=== PATIENT | female | born 1930 | race Caucasian/White ===

== ENCOUNTER 2016-07-15 15:23 | Inpatient (IN) | payer OTHER ==
--- NOTE | 2016-07-15 15:57 | PDOC ---
[id number] Timing/Duration: reports: week Associated Symptoms: reports: chest pain/soreness, cough, shortness of breath. denies: fever/chills, lightheadedness <Abbey Tinsley - Last Filed: 07/15/16 17:58> <Abril Charles - Last Filed: 07/17/16 11:08> - General Chief Complaint: Shortness of Breath Stated Complaint: SOB/LEG PAIN Time Seen by Provider: 07/15/16 15:42 Past History - Past Medical History Anemia: No Asthma: Yes Cancer: No Cardiac Disorders: Yes (AK X3, CHF) CVA: Yes COPD: Yes CHF: Yes Dementia: No Diabetes: Yes GI Disorders: Yes (GERD) Disorders: Yes (abnormal Renal function) HTN: Yes Hypercholesterolemia: Yes Liver Disease: No Suicide Attempt (Hx): No Seizures: No Thyroid Disease: No - Surgical History Abdominal Surgery: Yes (COLOSTOMY REVERSED, UMBILICAL HERNIA REPAIR) Appendectomy: Yes Cardiac Surgery: No Cholecystectomy: No Lung Surgery: No Neurologic Surgery: No Orthopedic Surgery: No - Immunization History Immunization Up to Date: Yes - Psycho/Social/Smoking Cessation Hx Anxiety: No Suicidal Ideation: No Smoking Status: No Smoking History: Former smoker Have you smoked in the past 12 months: No Number of Cigarettes Smoked Daily: 0 If you are a former smoker, when did you quit?: 2009 'Breaking Loose' booklet given: 10/13/14 Hx Alcohol Use: No Drug/Substance Use Hx: No Substance Use Type: None Hx Substance Use Treatment: No <Abbey Tinsley - Last Filed: 07/15/16 17:58> <Abril Charles - Last Filed: 07/17/16 11:08> - Past Medical History Allergies/Adverse Reactions: Allergies Allergy/AdvReac Type Severity Reaction Status Date / Time Sulfa (Sulfonamide Allergy Vomiting Verified 07/15/16 16:25 Antibiotics) [Sulfa(Sulfonamide Antibiotics)] Home Medications: Ambulatory Orders Albuterol 2.5/Ipratropium 0.5 [Duoneb -] 1 neb IH BID 08/08/15 Atorvastatin Ca [Lipitor] 40 mg PO HS 08/08/15 Brimonidine Tartrate [Alphagan 0.15% -] 1 drop OU DAILY 05/09/16 Carvedilol 6.25 mg PO BID 08/08/15 Salmeterol/Fluticasone [Advair 100Mcg/50Mcg -] 1 inh PO BID 08/08/15 Apixaban [Eliquis -] 2.5 mg PO BID #60 tablet 03/03/16 Hydralazine HCl [Apresoline -] 10 mg PO BID #60 tablet 03/03/16 Torsemide [Demadex -] 20 mg PO DAILY #30 tablet 03/03/16 Gabapentin 100 mg PO TID 07/15/16 Insulin Aspart [Novolog] 0 unit SQ ASDIR 07/15/16 Insulin Glargine,Hum.rec.anlog [Lantus (nf)] 25 units SQ HS 07/15/16 Respiratory Specific PMHX - Complaint Specific PMHX Angina: No <Abbey Tinsley Last Filed: 07/15/16 17:58> Review of Systems - Review of Systems Constitutional: No: Chills, Fever Respiratory: Yes: Cough, Shortness of Breath Cardiac (ROS): Yes: Chest Pain. No: Lightheadedness, Palpitations, Syncope ABD/GI: No: Diarrhea, Nausea, Vomiting, Abdominal cramping : No: Dysuria <Abbey Tinsley Last Filed: 07/15/16 17:58> *Physical Exam - Physical Exam Comments: 07/15/16 16:22 appears comfortable on NC General Appearance: Yes: Appropriately Dressed. No: Apparent Distress HEENT: positive: Normal Voice Neck: positive: Supple Respiratory/Chest: positive: Other (not moving air well, speaking in full sentences). negative: Crackles, Wheezing Cardiovascular: positive: Regular Rate, S1, S2 Gastrointestinal/Abdominal: positive: Soft. negative: Tender Extremity: positive: Normal Inspection. negative: Pedal Edema Integumentary: positive: Dry, Warm Neurologic: positive: Fully Oriented, Alert, Normal Mood/Affect <Abbey Tinsley Last Filed: 07/15/16 17:58> - Vital Signs Last Vital Signs Temp Pulse Resp BP Pulse Ox 98.4 F 85 20 124/81 95 07/17/16 05:57 07/17/16 05:57 07/17/16 05:57 07/17/16 05:57 07/16/16 17:41 <Abril Charles - Last Filed: 07/17/16 11:08> Heart Score/ECG Review - ECG Intrepretation Comment:: 07/15/16 17:31 Rate controlled afib w/ TWI in V4-V6, unchanged from ekg 03/2016 <Abbey Tinsley - Last Filed: 07/15/16 17:58> ED Treatment Course - LABORATORY CBC & Chemistry Diagram: 07/15/16 16:50 07/15/16 16:50 <Abbey Tinsley - Last Filed: 07/15/16 17:58> - LABORATORY CBC & Chemistry Diagram: 07/17/16 06:00 07/17/16 06:00 - ADDITIONAL ORDERS Additional order review: 07/15/16 16:50 RBC 3.74 MCV 89.0 MCHC 33.0 RDW 15.6 D MPV 7.6 Neutrophils % 79.3 Lymphocytes % 9.5 D Monocytes % 8.3 Eosinophils % 2.0 Basophils % 0.9 - Medications Given in the ED: ED Medications Discontinued Medications Generic Name Dose Route Start Last Admin Trade Name Chan PRN Reason Stop Dose Admin Dextrose 50 ml 07/16/16 00:46 07/16/16 01:01 D50w (Vial) - IVPUSH 07/16/16 00:47 50 ml NOW ONE Administration Dextrose 50 ml 07/16/16 05:41 07/16/16 02:05 D50w (Vial) - IVPUSH 07/16/16 05:42 50 ml NOW ONE Administration Furosemide 60 mg 07/15/16 17:43 07/15/16 18:32 Lasix Injection - IVPUSH 07/15/16 17:44 60 mg ONCE ONE Administration Furosemide 40 mg 07/16/16 10:00 07/16/16 09:02 Lasix Injection - IVPB 40 mg DAILY VALERIA Administration Dextrose/Sodium Chloride 1,000 mls @ 75 mls/hr 07/16/16 03:02 07/16/16 03:02 D5-Ns - IV 07/16/16 16:21 75 mls/hr ASDIR ONE Administration Insulin Detemir 25 units 07/15/16 22:00 07/15/16 22:33 Levemir Vial SQ 25 units HS VALERIA Administration Methylprednisolone Sodium Succinate 125 mg 07/16/16 03:01 07/16/16 03:01 Solu-Medrol - IVPB 07/16/16 03:02 125 mg NOW ONE Administration Ondansetron HCl 4 mg 07/15/16 17:22 07/15/16 17:28 Zofran Injection IVPUSH 07/15/16 17:23 4 mg ONCE ONE Administration <Abril Charles - Last Filed: 07/17/16 11:08> Medical Decision Making - Medical Decision Making 07/15/16 15:57 85 yo F, HTN, HLD, CAD, AK x 2, PNA, CHF on torsemide, afib on eliquis, COPD, on oxygen, DM, CKD, gastroparesis, p/w intermittent sob x 1 week and c/o difficulty ambulating 2/2 b/l leg weakness. +cough, no f/c. Also c/o vague CP, no diaphoresis, palpitations, leg swelling, n/v See exam SOB R/o ACS vs CHF flare vs COPD vs PNA Hypoxic to 85%on RA (oxygen dependent), vitals stable otherwise Not moving air well on exam but no obvious wheezing/crackles No edema -NC -ekg -labs -cxr -anticipate admission 07/15/16 16:22 07/15/16 17:39 BNP >14 K, based on chart review, significantly higher that previous BNP readings. CXR similar to prior w/ large heart and documented sclerotic unfolded aorta but no obvious infiltrate/effusion today. Based on sxs and hypoxemia, will diuresis and admit 07/15/16 17:58 Case d/w Dr Gillespie (o/c for Dr Arteaga) and pt admitted to Dr Burk <Abbey Tinsley - Last Filed: 07/15/16 17:58> *DC/Admit/Observation/Transfer - Discharge Dispostion Admit: Yes <Abbey Tinsley - Last Filed: 07/15/16 17:58> - Attestations Physician Attestion: I reviewed the case with the mid-level practitioner and agree with the mid- level practitioner's assessment, diagnosis and disposition. <Abril Charles - Last Filed: 07/17/16 11:08> Diagnosis at time of Disposition: CHF exacerbation Qualifiers: Congestive heart failure type: unspecified congestive heart failure type Qualified Code(s): I50.9 - Heart failure, unspecified - Discharge Dispostion Condition at time of disposition: Fair
[2016-07-15 16:58] LABS: BASOPHIL 0.9 % (0-2.0); MCH 29.3 pg (25.7-33.7); MEAN PLT VOLUME 7.6 fl (7.5-11.1); NEUTROPHILS 79.3 % (42.8-82.8); PLATELET COUNT 147 K/MM3 (134-434); RDW 15.6 % (11.6-15.6); WHITE BLOOD COUNT 7.5 K/mm3 (4.0-10.0)
[2016-07-15 17:20] LABS: URINE APPEARANCE CLEAR; URINE BILIRUBIN NEGATIVE (NEGATIVE); URINE BLOOD NEGATIVE (NEGATIVE); URINE COLOR STRAW; URINE GLUCOSE (UA) NEGATIVE (NEGATIVE); URINE KETONE NEGATIVE (NEGATIVE); URINE LEUK ESTERASE NEGATIVE (NEGATIVE); URINE NITRITE NEGATIVE (NEGATIVE); URINE PROTEIN NEGATIVE (NEGATIVE); URINE UROBILINOGEN NEGATIVE E.U./dl (0.2-1.0)
[2016-07-15] MEDS ORDERED: ONDANSETRON 4 MG/2 ML VIAL IVPUSH ONE (17:22)
[2016-07-15 17:25] LABS: ALBUMIN 3.2 g/dl (3.4-5.0); BILIRUBIN,TOTAL 0.7 mg/dL (0.2-1.0); CALCIUM 8.9 mg/dL (8.5-10.1); COCKROFT - GAULT 23.9955; TOT PROT 5.9 g/dl (6.4-8.2)
[2016-07-15] MEDS ORDERED: ONDANSETRON 4 MG/2 ML VIAL ONE (17:25)
[2016-07-15 17:27] LABS: TROPONIN I 0.03 ng/ml (0.00-0.05)
[2016-07-15] MEDS ORDERED: FUROSEMIDE 40 MG/4 ML INJECTABLE VIAL IVPUSH ONE (17:43)
[2016-07-15] MEDS ORDERED: FUROSEMIDE 40 MG/4 ML INJECTABLE VIAL ONE (18:27)
[2016-07-15] MEDS ORDERED: AZITHROMYCIN IVPB 500 MG in DEXTROSE 5%-WATER - 250 ML IVPB SCH (19:30)
--- NOTE | 2016-07-15 19:30 | HP ---
Admitting History and Physical - Admission Chief Complaint: shortness of breath History of Present Illness: 85 yo female, h/o COPD, CHF, presents with shortness of breath. Notes that started feeling sick about a week ago, with sore throat, phlegm, cough. Now began to feel short of breath, which is what brought her to the ED. No fevers, eating OK, notes that blood sugar has been OK. 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 Cardiovascular: Yes: AFIB, CAD (s/p SC ), CHF, HTN, Hyperlipdemia, Mitral Insufficiency Pulmonary: Yes: COPD Gastrointestinal: Yes: Constipation, Other (gastroparesis) Renal/: Yes: Renal Failure, Renal Inusuff Endocrine: Yes: Diabetes Mellitus - Past Surgical History Past Surgical History: Yes: Appendectomy, Colectomy, Hernia Repair, Hysterectomy - Smoking History Smoking history: Former smoker Have you smoked in the past 12 months: No Aproximately how many cigarettes per day: 0 If you are a former smoker, when did you quit?: 2009 - Alcohol/Substance Use Hx Alcohol Use: No History of Substance Use: reports: None - Social History ADL: Support Services History of Recent Travel: No Home Medications - Allergies Allergies/Adverse Reactions: Allergies Allergy/AdvReac Type Severity Reaction Status Date / Time Sulfa (Sulfonamide Allergy Vomiting Verified 07/15/16 16:25 Antibiotics) [Sulfa(Sulfonamide Antibiotics)] - Home Medications Home Medications: Ambulatory Orders Albuterol 2.5/Ipratropium 0.5 [Duoneb -] 1 neb IH BID 08/08/15 Atorvastatin Ca [Lipitor] 40 mg PO HS 08/08/15 Brimonidine Tartrate [Alphagan 0.15% -] 1 drop OU DAILY 08/08/15 Carvedilol 6.25 mg PO BID 08/08/15 Salmeterol/Fluticasone [Advair 100Mcg/50Mcg -] 1 inh PO BID 08/08/15 Apixaban [Eliquis -] 2.5 mg PO BID #60 tablet 03/03/16 Hydralazine HCl [Apresoline -] 10 mg PO BID #60 tablet 03/03/16 Torsemide [Demadex -] 20 mg PO DAILY #30 tablet 03/03/16 Gabapentin 100 mg PO TID 07/15/16 Insulin Aspart [Novolog] 0 unit SQ ASDIR 07/15/16 Insulin Glargine,Hum.rec.anlog [Lantus (nf)] 25 units SQ HS 07/15/16 Family Disease History - Family Disease History Family History: Unremarkable Review of Systems - Review of Systems Constitutional: denies: Loss of Appetite, Malaise Eyes: reports: No Symptoms HENT: reports: Throat Pain. denies: Difficult Swallowing Neck: reports: No Symptoms Cardiovascular: denies: Chest Pain, Palpitations Respiratory: reports: Cough, SOB. denies: Wheezing Gastrointestinal: denies: Abdominal Pain, Constipation, Diarrhea, Dysphagia, Nausea, Vomiting Physical Examination Vital Signs: Vital Signs Temperature 98.8 F 07/15/16 18:37 Pulse Rate 89 07/15/16 18:37 Respiratory Rate 18 07/15/16 18:37 Blood Pressure 134/82 07/15/16 18:37 O2 Sat by Pulse Oximetry (%) 99 07/15/16 18:37 Constitutional: Yes: No Distress, Calm Eyes: Yes: Conjunctiva Clear, EOM Intact, PERRL HENT: Yes: Atraumatic, Normocephalic Neck: Yes: Supple, Trachea Midline Cardiovascular: Yes: Pulse Irregular, S1, S2. No: Murmur Respiratory: Yes: Regular. No: Rales, Rhonchi, Wheezes Gastrointestinal: Yes: Normal Bowel Sounds, Soft. No: Distention, Tenderness Edema: No Neurological: Yes: Alert, Oriented Labs: CBC, BMP 07/15/16 16:50 07/15/16 16:50 Imaging - Results Chest X-ray: Image Reviewed (-prelim with no infiltrates (large heart, right sided deviation of mediastinum, same as prior)) Problem List - Problems (1) CHF exacerbation Assessment/Plan: -start IV diuresis -cardio eval Code(s): I50.9 - HEART FAILURE, UNSPECIFIED Qualifiers: Congestive heart failure type: unspecified congestive heart failure type Qualified Code(s): I50.9 - Heart failure, unspecified (2) Acute exacerbation of chronic obstructive airways disease Assessment/Plan: -cont nebulizers, start IV azithro for COPD exac Code(s): J44.1 - CHRONIC OBSTRUCTIVE PULMONARY DISEASE W (ACUTE) EXACERBATION (3) Diabetes mellitus Assessment/Plan: -follow fingersticks -on Lantus in evenings Code(s): E11.9 - TYPE 2 DIABETES MELLITUS WITHOUT COMPLICATIONS Qualifiers: Diabetes mellitus type: type 2 Diabetes mellitus complication status: with kidney complications Diabetes mellitus complication detail: with chronic kidney disease (4) HLD (hyperlipidemia) Assessment/Plan: -cont statin Code(s): E78.5 - HYPERLIPIDEMIA, UNSPECIFIED (5) Atrial fibrillation Assessment/Plan: -rate controlled, on NOAC Code(s): I48.91 - UNSPECIFIED ATRIAL FIBRILLATION Qualifiers: Atrial fibrillation type: chronic Qualified Code(s): I48.2 - Chronic atrial fibrillation (6) Hypertension Assessment/Plan: -cont hydralazine, coreg Code(s): I10 - ESSENTIAL (PRIMARY) HYPERTENSION
[2016-07-15] MEDS: AZITHROMYCIN IVPB 500 MG/250 ML D5W PRE-DOCKED IVPB SCH (20:04)
[2016-07-15] MEDS ORDERED: AZITHROMYCIN IVPB 250 ML IVPB ONE (20:06)
[2016-07-15] MEDS: GABAPENTIN 100 MG CAPSULE (FP) PO SCH (22:00)
[2016-07-15] MEDS: ALBUTEROL SO4 2.5/IPRATROPIUM 0.5 INH SOL 3 ML VIAL.NEB. NEB SCH (22:00)
[2016-07-15] MEDS: CARVEDILOL 6.25 MG TABLET (FP) PO SCH (22:00)
[2016-07-15] MEDS ORDERED: INSULIN DETEMIR 100 UNITS/ML MDV SQ SCH (22:00)
[2016-07-15] MEDS: hydrALAZINE HCL 10 MG TABLET PO SCH (22:00)
[2016-07-15] MEDS ORDERED: ATORVASTATIN CA 40 MG TABLET (FP) ONE (22:01)
[2016-07-15] MEDS ORDERED: CARVEDILOL 3.125 MG TABLET (FP) ONE (22:01)
[2016-07-15] MEDS ORDERED: GABAPENTIN 100 MG CAPSULE (FP) ONE (22:02)
[2016-07-15] MEDS ORDERED: ALBUTEROL SO4 2.5/IPRATROPIUM 0.5 INH SOL 3 ML VIAL.NEB. NEB ONE (22:02)
[2016-07-15] MEDS ORDERED: INSULIN (NOVOLOG) ASPART 100 UNITS/ML 10ML VIAL ONE (22:03)
[2016-07-15] MEDS ORDERED: INSULIN DETEMIR 100 UNITS/ML MDV SQ ONE ×3 (22:03→22:30)
[2016-07-15] MEDS: ATORVASTATIN CA 40 MG TABLET (FP) PO SCH (22:15)
[2016-07-15] MEDS: FLUTICASONE/SALMETEROL 100 MCG/50 MCG DISKUS IH SCH (22:32)
[2016-07-15] MEDS: APIXABAN 2.5 MG TABLET PO SCH (22:33)
[2016-07-15] MEDS: INSULIN SLIDING SCALE (NOVOLOG) 1 VIAL SQ SCH (22:34)
[2016-07-16] MEDS ORDERED: DEXTROSE 50%-WATER 50 ML DISP.SYRIN ONE (00:32)
[2016-07-16] MEDS ORDERED: DEXTROSE 50%-WATER 50 ML VIAL IVPUSH ONE ×2 (00:46→05:41)
[2016-07-16 00:53] LABS: TROPONIN I 0.03 ng/ml (0.00-0.05)
[2016-07-16 01:11] LABS: COCKROFT - GAULT 20.8675; CREATININE 2.3 mg/dL (0.55-1.02)
[2016-07-16] MEDS ORDERED: methylPREDNISolone NA SUCC 125 MG/2 ML VIAL ONE (02:54)
[2016-07-16] MEDS ORDERED: methylPREDNISolone NA SUCC 125 MG/2 ML VIAL IVPB ONE (03:01)
[2016-07-16] MEDS ORDERED: DEXTROSE 5%-NORMAL SALINE 1,000 ML IV ONE (03:02)
[2016-07-16 03:15] LABS: BASOPHIL 0.5 % (0-2.0); EOSINOPHIL 1.8 % (0-4.5); MCH 29.5 pg (25.7-33.7); MCHC 32.8 g/dl (32.0-36.0); MEAN CELL VOLUME 89.9 fl (80-96); MEAN PLT VOLUME 7.8 fl (7.5-11.1); NEUTROPHILS 81.7 % (42.8-82.8); PLATELET COUNT 163 K/MM3 (134-434); RDW 16.1 % (11.6-15.6); WHITE BLOOD COUNT 9.1 K/mm3 (4.0-10.0)
[2016-07-16 05:16] LABS: TROPONIN I 0.03 ng/ml (0.00-0.05)
[2016-07-16 05:26] LABS: CALCIUM 8.5 mg/dL (8.5-10.1); COCKROFT - GAULT 21.811; CREATININE 2.2 mg/dL (0.55-1.02)
[2016-07-16] MEDS: ALBUTEROL SO4 2.5/IPRATROPIUM 0.5 INH SOL 3 ML VIAL.NEB. NEB SCH (05:39)
[2016-07-16] MEDS: GABAPENTIN 100 MG CAPSULE (FP) PO SCH ×3 (05:40→22:16)
[2016-07-16] MEDS: INSULIN SLIDING SCALE (NOVOLOG) 1 VIAL SQ SCH ×4 (07:05→22:16)
--- NOTE | 2016-07-16 08:37 | EKG ---
Test Reason : Blood Pressure : / mmHG Vent. Rate : 067 BPM Atrial Rate : 326 BPM P-R Int : 000 ms QRS Dur : 122 ms QT Int : 490 ms P-R-T Axes : 000 -12 212 degrees QTc Int : 517 ms ATRIAL FIBRILLATION POSSIBLE INFERIOR INFARCT (CITED ON OR BEFORE 16-JUL-2016) ABNORMAL ECG WHEN COMPARED WITH ECG OF 06-MAR-2016 02:52, COMPARED TO EKG NO SIGNIFICANT CHANGE IS FOUND Confirmed by CECIL STRONG MD ([id number]) on 07/16/2016 8:37:32 AM Referred By: Confirmed By:CECIL STRONG MD
[2016-07-16 09:06] LABS: TROPONIN I 0.03 ng/ml (0.00-0.05)
--- NOTE | 2016-07-16 09:59 | PN ---
Progress Note, Physician Chief Complaint: Ms Boucher says she is feeling weak today. Says her breathing feels better but overall still feels bad. Denies cp or n/v. - Current Medication List Current Medications: Active Medications Albuterol/Ipratropium (Duoneb -) 1 amp NEB TIDR [facility] Last Admin: 07/16/16 05:39 Dose: 1 amp Apixaban (Eliquis -) 2.5 mg PO BID [facility] Last Admin: 07/15/16 22:33 Dose: 2.5 mg Atorvastatin Calcium (Lipitor -) 40 mg PO HS [facility] Last Admin: 07/15/16 22:15 Dose: 40 mg Azithromycin (Zithromax 500mg Ivpb (Pre-Docked)) 500 mg IVPB DAILY [facility] Last Admin: 07/15/16 20:04 Dose: 500 mg Brimonidine Tartrate (Alphagan 0.15% -) 1 drop OU DAILY [facility] Carvedilol (Coreg -) 6.25 mg PO BID [facility] Last Admin: 07/15/16 22:00 Dose: 6.25 mg Furosemide (Lasix Injection -) 40 mg IVPB DAILY [facility] Last Admin: 07/16/16 09:02 Dose: 40 mg Gabapentin (Neurontin -) 100 mg PO TID [facility] Last Admin: 07/16/16 05:40 Dose: Not Given Hydralazine HCl (Apresoline -) 10 mg PO BID [facility] Last Admin: 07/15/16 22:00 Dose: 10 mg Dextrose/Sodium Chloride (D5-Ns -) 1,000 mls @ 75 mls/hr IV ASDIR ONE Stop: 07/16/16 16:21 Last Admin: 07/16/16 03:02 Dose: 75 mls/hr Insulin Aspart (Novolog Vial Sliding Scale -) 1 vial SQ ACHS [facility] PRN Reason: Protocol Last Admin: 07/16/16 07:05 Dose: Not Given Fluticasone/Salmeterol (Advair 100mcg/50mcg -) 1 puff IH BID [facility] Last Admin: 07/15/16 22:32 Dose: 1 puff - Objective Vital Signs: Vital Signs Temperature 95.4 F L 07/16/16 08:55 Pulse Rate 75 07/16/16 08:55 Respiratory Rate 18 07/16/16 08:55 Blood Pressure 119/97 07/16/16 08:55 O2 Sat by Pulse Oximetry (%) 97 07/16/16 08:55 Constitutional: Yes: Well Nourished, No Distress, Calm Cardiovascular: Yes: Pulse Irregular. No: Bradycardia, Tachycardia, Gallop, Murmur, Rub Respiratory: Yes: Regular, CTA Bilaterally, On Nasal O2. No: Rales, Rhonchi, Wheezes Gastrointestinal: Yes: Normal Bowel Sounds, Soft. No: Distention, Tenderness Extremities: Yes: WNL Edema: No Labs: CBC, BMP 07/16/16 03:00 07/16/16 03:00 Problem List - Problems (1) Acute on chronic respiratory failure with hypoxemia Assessment/Plan: -patient with history of COPD coming in with shortness of breath -on chronic oxygen at home, continue -currently lung exam sounds clear, ? viral illness with bronchitis -continue duonebs and advair -continue azithromycin day 2 -pulmonary consult, change to Dr Alvarado per patient request Code(s): J96.21 - ACUTE AND CHRONIC RESPIRATORY FAILURE WITH HYPOXIA (2) Chronic kidney disease (CKD) Assessment/Plan: -stable -monitor Code(s): N18.9 - CHRONIC KIDNEY DISEASE, UNSPECIFIED Qualifiers: Chronic kidney disease stage: stage 4 (severe) Qualified Code(s): N18.4 - Chronic kidney disease, stage 4 (severe) (3) Congestive heart failure Assessment/Plan: -patient does not appear fluid overloaded -suspect COPD over CHF exacerbation -will stop IV lasix since also with hypotension -cardiology consult Code(s): I50.9 - HEART FAILURE, UNSPECIFIED Qualifiers: Congestive heart failure type: diastolic Congestive heart failure chronicity: acute on chronic Qualified Code(s): I50.33 - Acute on chronic diastolic (congestive) heart failure (4) Diabetes mellitus Assessment/Plan: -diabetic diet -continue SSI Code(s): E11.9 - TYPE 2 DIABETES MELLITUS WITHOUT COMPLICATIONS Qualifiers: Diabetes mellitus type: type 2 Diabetes mellitus complication status: with kidney complications Diabetes mellitus complication detail: with chronic kidney disease (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 Assessment/Plan: -controlled Code(s): E11.43 - TYPE 2 DIABETES W DIABETIC AUTONOMIC (POLY)NEUROPATHY K31.84 - GASTROPARESIS (6) HLD (hyperlipidemia) Assessment/Plan: -continue statin Code(s): E78.5 - HYPERLIPIDEMIA, UNSPECIFIED (7) Hypotension Assessment/Plan: -episode of hypotension overnight -also with hypothermia -stop IV lasix -continue IVF -does not look septic, do not think secondary to infection but will monitor -improved today Code(s): I95.9 - HYPOTENSION, UNSPECIFIED (8) Depression Assessment/Plan: -patient says she is depressed secondary to her chronic illness and repeated hospitalizations -consult psychiatry to address -stated sometimes she wants it to end, but is not suicidal or seeking to harm herself Code(s): F32.9 - MAJOR DEPRESSIVE DISORDER, SINGLE EPISODE, UNSPECIFIED (9) Generalized weakness Assessment/Plan: -chronic -PT consult Code(s): R53.1 - WEAKNESS
[2016-07-16] MEDS: AZITHROMYCIN IVPB 500 MG/250 ML D5W PRE-DOCKED IVPB SCH (10:00)
[2016-07-16] MEDS ORDERED: FUROSEMIDE 40 MG/4 ML INJECTABLE VIAL IVPB SCH (10:00)
[2016-07-16 10:23] LABS: BASOPHIL 0.4 % (0-2.0); EOSINOPHIL 0.2 % (0-4.5); MCH 29.7 pg (25.7-33.7); MCHC 32.9 g/dl (32.0-36.0); MEAN CELL VOLUME 90.2 fl (80-96); MEAN PLT VOLUME 7.7 fl (7.5-11.1); NEUTROPHILS 95.8 % (42.8-82.8); PLATELET COUNT 157 K/MM3 (134-434); RDW 16.1 % (11.6-15.6); WHITE BLOOD COUNT 6.8 K/mm3 (4.0-10.0)
[2016-07-16] MEDS: CARVEDILOL 6.25 MG TABLET (FP) PO SCH ×2 (10:41→22:15)
[2016-07-16] MEDS: APIXABAN 2.5 MG TABLET PO SCH ×2 (10:42→22:15)
[2016-07-16] MEDS ORDERED: AZITHROMYCIN IVPB 250 ML IVPB ONE (10:43)
[2016-07-16 10:50] LABS: CALCIUM 8.3 mg/dL (8.5-10.1); COCKROFT - GAULT 22.8565; CREATININE 2.1 mg/dL (0.55-1.02)
[2016-07-16] MEDS: FLUTICASONE/SALMETEROL 100 MCG/50 MCG DISKUS IH SCH ×2 (12:18→23:24)
[2016-07-16] MEDS: BRIMONIDINE TARTRATE 0.15% OPHTHALMIC 5 ML BOTTLE OU SCH (12:19)
[2016-07-16] MEDS ORDERED: INSULIN REGULAR HUMAN 100 UNITS/ML *VIAL ONE ×2 (12:21→15:03)
--- NOTE | 2016-07-16 12:24 | CON.PSY ---
Psychiatry Consult Chief Complaint: I dont need a Psychiatrist. I am in p[ain. Patient is very angry. Symptoms: reports: Irritability - Previous Psychiatric Treatment Outpatient: None Inpatient: None - Previous Substance Abuse Treatment Outpatient: None Inpatient: None - Family History Family History: Unremarkable - Current Medications Current Medications: Active Medications Albuterol/Ipratropium (Duoneb -) 1 amp NEB TIDR [facility] Last Admin: 07/16/16 05:39 Dose: 1 amp Apixaban (Eliquis -) 2.5 mg PO BID [facility] Last Admin: 07/16/16 10:42 Dose: 2.5 mg Atorvastatin Calcium (Lipitor -) 40 mg PO HS [facility] Last Admin: 07/15/16 22:15 Dose: 40 mg Azithromycin (Zithromax 500mg Ivpb (Pre-Docked)) 500 mg IVPB DAILY [facility] Last Admin: 07/16/16 10:00 Dose: 500 mg Brimonidine Tartrate (Alphagan 0.15% -) 1 drop OU DAILY [facility] Last Admin: 07/16/16 12:19 Dose: 1 drop Carvedilol (Coreg -) 6.25 mg PO BID [facility] Last Admin: 07/16/16 10:41 Dose: 6.25 mg Gabapentin (Neurontin -) 100 mg PO TID [facility] Last Admin: 07/16/16 05:40 Dose: Not Given Hydralazine HCl (Apresoline -) 10 mg PO BID [facility] Last Admin: 07/15/16 22:00 Dose: 10 mg Dextrose/Sodium Chloride (D5-Ns -) 1,000 mls @ 75 mls/hr IV ASDIR ONE Stop: 07/16/16 16:21 Last Admin: 07/16/16 03:02 Dose: 75 mls/hr Insulin Aspart (Novolog Vial Sliding Scale -) 1 vial SQ ACHS [facility] PRN Reason: Protocol Last Admin: 07/16/16 12:18 Dose: 10 units Fluticasone/Salmeterol (Advair 100mcg/50mcg -) 1 puff IH BID [facility] Last Admin: 07/16/16 12:18 Dose: 1 puff - Allergies Allergies: Allergies Allergy/AdvReac Type Severity Reaction Status Date / Time Sulfa (Sulfonamide Allergy Vomiting Verified 07/15/16 16:25 Antibiotics) [Sulfa(Sulfonamide Antibiotics)] - Current Living Status Usual Living Arrangement: Alone - Current Mental Status Evaluation Appearance: Disheveled Attitude: Uncooperative - Affect Affect: Constrictive Appropriateness: Appropriate to Content - Mood Mood: Angry - Speech/Language Expressive: Coherent - Psychomotor Activity Psychomotor Activity: Slowed - Thought Process Thought Process: Intact - Thought Content Hallucinations: Absent Delusions: Absent - Self Perception Self Perception: No Impairment - Cognition Attention: Alert Orientation: Time Memory, Immediate Recall: Intact - Concentration Serial Sevens Intact: No Simple Calculations Intact: No - Abstraction Proverb Interpretation: Intact Judgement: Minimally Impaired - Insight Insight: Intact - Impulse Control Impulse Control: Minimally Impaired - Suicidal Ideation Suicidal Ideation: No - Homicidal Ideation Homicidal Ideation: No Assessment/Plan will try CYmbalta 20mg po od.
--- NOTE | 2016-07-16 15:08 | CON.CARD ---
Cardiology Consult (text) - Consultation Consultation Note: CC: sob hpi: 85 yo f with systolic CHF, CAD with prior CA's treated medically, afib on eliquis, HTN, HL, h/o CVA, Mitral regurgitation, CKD, DM, COPD on home oxygen who is here with sob. States recent uri sx's. cough, congestion. Now with acute onset sob. Adherent to torsemide. No cp, palps, dizzy, loc, pnd, orthopnea. Le edema, bleeding or transient neurologic sx's. Chronic ttp of LE. Has not followed up with cardiology. In ER, dropped her bp's after 60 mg IV lasix, then received IVF. this morning received another dose of lasix IV 40 mg PMH:Per hpi Past Surgical History: Appendectomy, Colectomy, Hernia Repair, Hysterectomy, Nephrectomy? patient states she has one kidney Social hx: Former smoker, no etoh or illicits. Fam hx: NC, no scd ROS: per hpi; no fever,chills, sweats nvd, headache, vision changes, rash, wt gain, meds: Ambulatory Orders Albuterol 2.5/Ipratropium 0.5 [Duoneb -] 1 neb IH BID 08/08/15 Atorvastatin Ca [Lipitor] 40 mg PO HS 08/08/15 Brimonidine Tartrate [Alphagan 0.15% -] 1 drop OU DAILY 08/08/15 Carvedilol 6.25 mg PO BID 08/08/15 Salmeterol/Fluticasone [Advair 100Mcg/50Mcg -] 1 inh PO BID 08/08/15 Apixaban [Eliquis -] 2.5 mg PO BID #60 tablet 03/03/16 Hydralazine HCl [Apresoline -] 10 mg PO BID #60 tablet 03/03/16 Torsemide [Demadex -] 20 mg PO DAILY #30 tablet 03/03/16 Gabapentin 100 mg PO TID 07/15/16 Insulin Aspart [Novolog] 0 unit SQ ASDIR 07/15/16 Insulin Glargine,Hum.rec.anlog [Lantus (nf)] 25 units SQ HS 07/15/16 Current Medications Albuterol/Ipratropium (Duoneb -) 1 amp NEB TIDR [facility] Last Admin: 07/16/16 05:39 Dose: 1 amp Apixaban (Eliquis -) 2.5 mg PO BID [facility] Last Admin: 07/16/16 10:42 Dose: 2.5 mg Atorvastatin Calcium (Lipitor -) 40 mg PO HS [facility] Last Admin: 07/15/16 22:15 Dose: 40 mg Azithromycin (Zithromax 500mg Ivpb (Pre-Docked)) 500 mg IVPB DAILY [facility] Last Admin: 07/16/16 10:00 Dose: 500 mg Brimonidine Tartrate (Alphagan 0.15% -) 1 drop OU DAILY [facility] Last Admin: 07/16/16 12:19 Dose: 1 drop Carvedilol (Coreg -) 6.25 mg PO BID [facility] Last Admin: 07/16/16 10:41 Dose: 6.25 mg Duloxetine HCl (Cymbalta -) 20 mg PO DAILY [facility] Gabapentin (Neurontin -) 100 mg PO TID [facility] Last Admin: 07/16/16 05:40 Dose: Not Given Hydralazine HCl (Apresoline -) 10 mg PO BID [facility] Last Admin: 07/15/16 22:00 Dose: 10 mg Insulin Aspart (Novolog Vial Sliding Scale -) 1 vial SQ ACHS [facility] PRN Reason: Protocol Last Admin: 07/16/16 12:18 Dose: 10 units Fluticasone/Salmeterol (Advair 100mcg/50mcg -) 1 puff IH BID [facility] Last Admin: 07/16/16 12:18 Dose: 1 puff pe: Vital Signs - 24 hr 07/15/16 07/15/16 07/15/16 15:23 16:15 16:25 Temperature 97.9 F Pulse Rate 86 Pulse Rate [ Radial] Respiratory 18 Rate Blood Pressure 154/79 Blood Pressure [Left] O2 Sat by Pulse 85 L 94 L 94 L Oximetry (%) 07/15/16 07/15/16 07/15/16 18:37 20:00 22:00 Temperature 98.8 F 97.1 F L Pulse Rate Pulse Rate [ 89 82 Radial] Respiratory 18 20 Rate Blood Pressure Blood Pressure 134/82 117/69 [Left] O2 Sat by Pulse 99 99 99 Oximetry (%) 07/16/16 07/16/16 07/16/16 00:00 00:15 00:40 Temperature 98.4 F Pulse Rate Pulse Rate [ 73 61 79 Radial] Respiratory 18 18 20 Rate Blood Pressure Blood Pressure 84/36 68/40 96/62 [Left] O2 Sat by Pulse 95 88 L 99 Oximetry (%) 07/16/16 07/16/16 07/16/16 01:31 01:45 01:52 Temperature Pulse Rate Pulse Rate [ 70 69 60 Radial] Respiratory 18 28 H 23 Rate Blood Pressure Blood Pressure 82/49 85/65 107/68 [Left] O2 Sat by Pulse 99 97 Oximetry (%) 07/16/16 07/16/16 07/16/16 02:13 02:30 02:45 Temperature Pulse Rate Pulse Rate [ 60 52 L 68 Radial] Respiratory 22 20 20 Rate Blood Pressure Blood Pressure 81/42 90/41 97/46 [Left] O2 Sat by Pulse 100 100 100 Oximetry (%) 07/16/16 07/16/16 07/16/16 04:05 05:25 06:00 Temperature 97.1 F L 95.5 F L Pulse Rate Pulse Rate [ 51 L 48 L 62 Radial] Respiratory 20 18 16 Rate Blood Pressure Blood Pressure 99/44 95/71 98/45 [Left] O2 Sat by Pulse 99 96 99 Oximetry (%) 07/16/16 07/16/16 07/16/16 08:00 08:55 10:40 Temperature 95.4 F L 98.4 F Pulse Rate Pulse Rate [ 75 64 Radial] Respiratory 18 18 20 Rate Blood Pressure Blood Pressure 119/97 112/65 [Left] O2 Sat by Pulse 97 97 96 Oximetry (%) Intake & Output 07/14/16 07/15/16 07/16/16 07/17/16 07:59 07:59 07:59 07:59 Intake Total 475 Output Total 240 Balance 235 Weight 166 lb Constitutional: Yes: Well Nourished, No Distress Eyes: No: Sclera Icterus HENT: No: Nasal Congestion Neck: No: Decreased ROM Respiratory: diminished air movement, trace wheezes nl eff No: Accessory Muscle Use Gastrointestinal: Yes: Normal Bowel Sounds. No: Distention, Hepatomegaly, Palpable Mass, Tenderness Cardiovascular: Yes: Irregularly, irregular. JVD: no jvd Carotid Bruit: No PMI: Non-Displaced Heart Sounds: Yes: S1, S2. No: Gallop Murmur: 2/6 systolic murmur at apex. No: Diastolic Murmur Musculoskeletal: Yes: Other (No kyphosis) Extremities: No: Cold, Cyanosis Edema: no le edema Peripheral Pulses: pos dp pt Integumentary: No: Jaundice diaphoresis Neurological: Yes: Alert, Oriented (x3) Psychiatric: No: Agitated CBC, BMP 07/16/16 09:55 07/16/16 09:55 Laboratory Tests 07/16/16 07/16/16 03:00 08:00 Creatine Kinase 60 78 Troponin I 0.03 0.03 cxr: suboptimal imaging. echo 07/2015: Mod LV dilation, mod-sev global systolic dysfunction, mod-sev MR, RVSP 40-50. Echo 05/2014: mod-sev reduced lvef, global hk, nl rv, mod-sev mr, mod phtn, ecg: afib, vr 67 bpm, diffue nonspecific tw changes, no sig change prior ecgs A/P: 85 yo f with systolic CHF, CAD with prior CA's treated medically, afib on eliquis, HTN, HL, h/o CVA, Mitral regurgitation, CKD, DM, COPD on home oxygen who is here with pain and swelling in legs. systolic chf - (baseline weight is low 160s lbs), Last standing weight here 163 lbs, close to baseline. Weights had been stable as outpatient on torsemide 20 mg/day. Dropped her bp to IV lasix here. Will reassess creatinine/weight and volume status tomorrow and reassess need for further IV lasix vs. resuming po torsemide. -no signs acs, - pulmonary following to assess pulmonary contribution to sob -? etiology of CMP (ischemic? HTN? DM? RICCI?)-- had plan for outpatient f/u work up atrial fibrillation: -hr controlled/slightly katrin on bb -[facility] 7, [facility] AC -cont eliquis. No need for additional asa. cad s/p remote mi x2 w/o cath: -Stable, no angina. -no acute ischemic changes on EKG, trop neg -declined cath on multiple occasions in past, per review or prior cardio notes -Continue home cardiac meds (statin, AC, bb) ckd: -creat ranges 1.8-2.2 on prior admits here -currently near baseline. Monitor s/p diuresis. mitral regurg, chronic (non-rheumatic): -? functional/secondary (most likely). currently without signs of valvular decompensation, con't to monitor. pulmonary HTN: -? all sec to LV chf, vs component of chronic hypoxia from copd -needs reassessment. Had plans for office echo once well diuresed but unclear if it was done. htn: - running hypotensive, currently after lasix. monitor for need to downtitrate carvedilol, hydralazine regimen.
--- NOTE | 2016-07-16 15:09 | EKG ---
Test Reason : Blood Pressure : / mmHG Vent. Rate : 078 BPM Atrial Rate : 234 BPM P-R Int : 000 ms QRS Dur : 114 ms QT Int : 402 ms P-R-T Axes : 000 -24 174 degrees QTc Int : 458 ms ATRIAL FIBRILLATION T WAVE ABNORMALITY, CONSIDER LATERAL ISCHEMIA ABNORMAL ECG WHEN COMPARED WITH ECG OF 06-MAR-2016 02:52, VENT. RATE HAS INCREASED BY 27 BPM Confirmed by CECIL STRONG MD ([id number]) on 07/16/2016 3:09:16 PM Referred By: Confirmed By:CECIL STRONG MD
--- NOTE | 2016-07-16 17:20 | CON.PULM ---
Consult - History of Present Illness Chief Complaint: shortness of breath History of Present Illness: 85 year old lady with a one week history of cough and dyspnea. Pt denies chest pain or palpitations. Past history is significant for COPD on home O2, S/P several KS's, A. Fib. CHF, DM, HBP, and Mitral insufficiency. No history hemoptysis or TB. In ER pt developed transient hypotension post diuresis. Pt now improved with normal BP and decreased dyspnea. 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 Cardio/Vascular: Yes: AFIB, CAD (s/p KS ), CHF, HTN, Hyperlipdemia, Mitral Insufficiency Pulmonary: Yes: COPD Gastrointestinal: Yes: Constipation, Other (gastroparesis) Renal/: Yes: Renal Failure, Renal Inusuff Endocrine: Yes: Diabetes Mellitus - Past Surgical History Past Surgical History: Yes: Appendectomy, Colectomy, Hernia Repair, Hysterectomy - Alcohol/Substance Use Hx Alcohol Use: No History of Substance Use: reports: None - Smoking History Smoking history: Former smoker Have you smoked in the past 12 months: No Aproximately how many cigarettes per day: 0 If you are a former smoker, when did you quit?: 2009 - Social History Usual Living Arrangement: Alone ADL: Support Services History of Recent Travel: No Home Medications - Allergies Allergies/Adverse Reactions: Allergies Allergy/AdvReac Type Severity Reaction Status Date / Time Sulfa (Sulfonamide Allergy Vomiting Verified 07/15/16 16:25 Antibiotics) [Sulfa(Sulfonamide Antibiotics)] - Home Medications Home Medications: Ambulatory Orders Albuterol 2.5/Ipratropium 0.5 [Duoneb -] 1 neb IH BID 08/08/15 Atorvastatin Ca [Lipitor] 40 mg PO HS 08/08/15 Brimonidine Tartrate [Alphagan 0.15% -] 1 drop OU DAILY 08/08/15 Carvedilol 6.25 mg PO BID 08/08/15 Salmeterol/Fluticasone [Advair 100Mcg/50Mcg -] 1 inh PO BID 08/08/15 Apixaban [Eliquis -] 2.5 mg PO BID #60 tablet 03/03/16 Hydralazine HCl [Apresoline -] 10 mg PO BID #60 tablet 03/03/16 Torsemide [Demadex -] 20 mg PO DAILY #30 tablet 03/03/16 Gabapentin 100 mg PO TID 07/15/16 Insulin Aspart [Novolog] 0 unit SQ ASDIR 07/15/16 Insulin Glargine,Hum.rec.anlog [Lantus (nf)] 25 units SQ HS 07/15/16 Physical Exam Vital Sings: Vital Signs Temperature 98.4 F 07/16/16 10:40 Pulse Rate 64 07/16/16 10:40 Respiratory Rate 20 07/16/16 10:40 Blood Pressure 112/65 07/16/16 10:40 O2 Sat by Pulse Oximetry (%) 96 07/16/16 10:40 Constitutional: Yes: No Distress Eyes: No: Sclera Icterus HENT: Yes: Atraumatic, Normocephalic Neck: Yes: Supple, Trachea Midline Cardiovascular: Yes: Pulse Irregular. No: JVD Respiratory: Yes: CTA Bilaterally ...Percussion: No: Dullnes, Hyperresonance ...Clubbing: No Gastrointestinal: Yes: Soft, Tenderness. No: Hepatomegaly, Splenomegaly Extremities: No: Calf Tenderness Edema: LLE: Trace, RLE: Trace Neurological: Yes: Alert, Oriented Labs: CBC, BMP 07/16/16 09:55 07/16/16 09:55 Imaging - Results X-ray: Report Reviewed, Image Reviewed (roataed film-? mild increased markings left base) Cat Scan: Report Reviewed, Image Reviewed (08/15/2015: bibasilar consolidation/ atelectasis/effusions) Problem List - Problems (1) CHF exacerbation Code(s): I50.9 - HEART FAILURE, UNSPECIFIED Qualifiers: Congestive heart failure type: unspecified congestive heart failure type Qualified Code(s): I50.9 - Heart failure, unspecified (2) Acute on chronic respiratory failure with hypoxemia Code(s): J96.21 - ACUTE AND CHRONIC RESPIRATORY FAILURE WITH HYPOXIA (3) Atrial fibrillation Code(s): I48.91 - UNSPECIFIED ATRIAL FIBRILLATION Qualifiers: Atrial fibrillation type: chronic Qualified Code(s): I48.2 - Chronic atrial fibrillation Assessment/Plan 85 year old lady with one week history of increased dyspnea and cough. Pt known to have COPD with hypoxemia. Respiratory status improved -Acute on Chronic respiratory failure with hypoxemia: Sao2 95 on 3 liters O2, pt known to be hyopxemic on room air and uses home O2 -Acute bronchitis and exacerbation of COPD: respiratory status improving -CHF Suggest Repeat CXR O2 to maintain SaO2>90 Inhaled bronchodilators continue antibiotic cardiac meds and anticoagulation Thank you for referring this patient for consultation.
[2016-07-16 17:40] VITALS: BMI 30.7
[2016-07-16] MEDS ORDERED: PT OWN MED DRAWER 7, Y5N ONE (21:37)
[2016-07-16] MEDS ORDERED: INSULIN (NOVOLOG) ASPART 100 UNITS/ML 10ML VIAL ONE (22:10)
[2016-07-16] MEDS: ATORVASTATIN CA 40 MG TABLET (FP) PO SCH (22:14)
[2016-07-17] MEDS: ALBUTEROL SO4 2.5/IPRATROPIUM 0.5 INH SOL 3 ML VIAL.NEB. NEB SCH ×4 (00:58→22:54)
[2016-07-17] MEDS: GABAPENTIN 100 MG CAPSULE (FP) PO SCH ×3 (06:06→22:43)
[2016-07-17] MEDS: INSULIN SLIDING SCALE (NOVOLOG) 1 VIAL SQ SCH ×4 (06:06→22:44)
[2016-07-17 08:18] LABS: BASOPHIL 0.2 % (0-2.0); EOSINOPHIL 0.1 % (0-4.5); MCH 30.2 pg (25.7-33.7); MCHC 33.3 g/dl (32.0-36.0); MEAN CELL VOLUME 90.6 fl (80-96); MEAN PLT VOLUME 8.2 fl (7.5-11.1); NEUTROPHILS 90.4 % (42.8-82.8); PLATELET COUNT 167 K/MM3 (134-434); RDW 15.6 % (11.6-15.6)
[2016-07-17 08:34] LABS: CALCIUM 8.7 mg/dL (8.5-10.1); COCKROFT - GAULT 21.08; CREATININE 2.3 mg/dL (0.55-1.02); MAGNESIUM 2.4 mg/dL (1.8-2.4); PHOSPHOROUS 4.8 mg/dL (2.5-4.9)
[2016-07-17] MEDS: BRIMONIDINE TARTRATE 0.15% OPHTHALMIC 5 ML BOTTLE OU SCH (10:02)
[2016-07-17] MEDS: FLUTICASONE/SALMETEROL 100 MCG/50 MCG DISKUS IH SCH ×2 (10:30→22:00)
[2016-07-17] MEDS ORDERED: ONDANSETRON 4 MG/2 ML VIAL IVPB PRN (10:46)
[2016-07-17] MEDS: hydrALAZINE HCL 10 MG TABLET PO SCH ×2 (10:58→22:40)
[2016-07-17] MEDS: AZITHROMYCIN IVPB 500 MG/250 ML D5W PRE-DOCKED IVPB SCH (10:59)
[2016-07-17] MEDS: APIXABAN 2.5 MG TABLET PO SCH ×2 (10:59→22:56)
[2016-07-17] MEDS: DULoxetine HCL 20 MG CAPSULE.DR (FP) PO SCH (10:59)
[2016-07-17] MEDS: CARVEDILOL 6.25 MG TABLET (FP) PO SCH ×2 (10:59→22:41)
[2016-07-17] MEDS ORDERED: PANTOPRAZOLE 40 MG TABLET (FP) PO SCH (11:30)
--- NOTE | 2016-07-17 15:20 | PN ---
Progress Note, Physician Chief Complaint: Ms Boucher says she is feeling stronger today. Her breathing is improved. She is not having chest pain. She had some nausea this morning without emesis. - Current Medication List Current Medications: Active Medications Albuterol/Ipratropium (Duoneb -) 1 amp NEB TIDR [facility] Last Admin: 07/17/16 14:00 Dose: 1 amp Apixaban (Eliquis -) 2.5 mg PO BID [facility] Last Admin: 07/17/16 10:59 Dose: 2.5 mg Atorvastatin Calcium (Lipitor -) 40 mg PO HS [facility] Last Admin: 07/16/16 22:14 Dose: 40 mg Azithromycin (Zithromax 500mg Ivpb (Pre-Docked)) 500 mg IVPB DAILY [facility] Last Admin: 07/17/16 10:59 Dose: 500 mg Brimonidine Tartrate (Alphagan 0.15% -) 1 drop OU DAILY [facility] Last Admin: 07/17/16 10:02 Dose: 1 drop Carvedilol (Coreg -) 6.25 mg PO BID [facility] Last Admin: 07/17/16 10:59 Dose: 6.25 mg Duloxetine HCl (Cymbalta -) 20 mg PO DAILY [facility] Last Admin: 07/17/16 10:59 Dose: 20 mg Gabapentin (Neurontin -) 100 mg PO TID [facility] Last Admin: 07/17/16 15:02 Dose: 100 mg Hydralazine HCl (Apresoline -) 10 mg PO BID [facility] Last Admin: 07/17/16 10:58 Dose: 10 mg Insulin Aspart (Novolog Vial Sliding Scale -) 1 vial SQ ACHS [facility] PRN Reason: Protocol Last Admin: 07/17/16 10:31 Dose: Not Given Insulin Detemir (Levemir Vial) 10 units SQ [facility] Ondansetron HCl (Zofran Injection) 4 mg IVPB Q6H PRN PRN Reason: NAUSEA Last Admin: 07/17/16 11:53 Dose: 4 mg Pantoprazole Sodium (Protonix -) 40 mg PO DAILY [facility] Last Admin: 07/17/16 11:55 Dose: 40 mg Fluticasone/Salmeterol (Advair 100mcg/50mcg -) 1 puff IH BID [facility] Last Admin: 07/17/16 10:30 Dose: 1 puff - Objective Vital Signs: Vital Signs Temperature 98.1 F 07/17/16 14:00 Pulse Rate 82 07/17/16 14:15 Respiratory Rate 18 07/17/16 14:00 Blood Pressure 103/62 07/17/16 14:00 O2 Sat by Pulse Oximetry (%) 98 07/17/16 14:15 Constitutional: Yes: Well Nourished, No Distress, Calm Cardiovascular: Yes: Regular Rate and Rhythm. No: Gallop, Murmur, Rub Respiratory: Yes: Regular, On Nasal O2, Wheezes (minimal), Other (fair air movement). No: Rales, Rhonchi Gastrointestinal: Yes: Normal Bowel Sounds, Soft. No: Distention, Tenderness Extremities: Yes: WNL Edema: No Labs: CBC, BMP 07/17/16 06:00 07/17/16 06:00 Problem List - Problems (1) Acute on chronic respiratory failure with hypoxemia Code(s): J96.21 - ACUTE AND CHRONIC RESPIRATORY FAILURE WITH HYPOXIA (2) Chronic kidney disease (CKD) Code(s): N18.9 - CHRONIC KIDNEY DISEASE, UNSPECIFIED Qualifiers: Chronic kidney disease stage: stage 4 (severe) Qualified Code(s): N18.4 - Chronic kidney disease, stage 4 (severe) (3) Congestive heart failure Code(s): I50.9 - HEART FAILURE, UNSPECIFIED Qualifiers: Congestive heart failure type: diastolic Congestive heart failure chronicity: acute on chronic Qualified Code(s): I50.33 - Acute on chronic diastolic (congestive) heart failure (4) Diabetes mellitus Code(s): E11.9 - TYPE 2 DIABETES MELLITUS WITHOUT COMPLICATIONS Qualifiers: Diabetes mellitus type: type 2 Diabetes mellitus complication status: with kidney complications Diabetes mellitus complication detail: with chronic kidney disease (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 Code(s): E11.43 - TYPE 2 DIABETES W DIABETIC AUTONOMIC (POLY)NEUROPATHY K31.84 - GASTROPARESIS (6) HLD (hyperlipidemia) Code(s): E78.5 - HYPERLIPIDEMIA, UNSPECIFIED (7) Hypotension Code(s): I95.9 - HYPOTENSION, UNSPECIFIED (8) Depression Code(s): F32.9 - MAJOR DEPRESSIVE DISORDER, SINGLE EPISODE, UNSPECIFIED (9) Generalized weakness Code(s): R53.1 - WEAKNESS Assessment/Plan (1) Acute on chronic respiratory failure with hypoxemia Assessment/Plan: -patient with history of COPD coming in with shortness of breath -improved today -appreciate Dr Alvarado -continue current management -appears at baseline Code(s): J96.21 - ACUTE AND CHRONIC RESPIRATORY FAILURE WITH HYPOXIA (2) Chronic kidney disease (CKD) Assessment/Plan: -slightly elevated -recheck in am Code(s): N18.9 - CHRONIC KIDNEY DISEASE, UNSPECIFIED Qualifiers: Chronic kidney disease stage: stage 4 (severe) Qualified Code(s): N18.4 - Chronic kidney disease, stage 4 (severe) (3) Congestive heart failure Assessment/Plan: -appreciate cardiology assistance -holding IV lasix -defer to cardiology about diuresis -does not appear fluid overloaded Code(s): I50.9 - HEART FAILURE, UNSPECIFIED Qualifiers: Congestive heart failure type: diastolic Congestive heart failure chronicity: acute on chronic Qualified Code(s): I50.33 - Acute on chronic diastolic (congestive) heart failure (4) Diabetes mellitus Assessment/Plan: -diabetic diet -continue SSI -add low dose levemir Code(s): E11.9 - TYPE 2 DIABETES MELLITUS WITHOUT COMPLICATIONS Qualifiers: Diabetes mellitus type: type 2 Diabetes mellitus complication status: with kidney complications Diabetes mellitus complication detail: with chronic kidney disease (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 Assessment/Plan: -slight exacerbation -add back ranitidine bid, patient takes at home Code(s): E11.43 - TYPE 2 DIABETES W DIABETIC AUTONOMIC (POLY)NEUROPATHY K31.84 - GASTROPARESIS (6) HLD (hyperlipidemia) Assessment/Plan: -continue statin Code(s): E78.5 - HYPERLIPIDEMIA, UNSPECIFIED (7) Hypotension Assessment/Plan: -improved -can continue home regimen Code(s): I95.9 - HYPOTENSION, UNSPECIFIED (8) Depression Assessment/Plan: -continue cymbalta Code(s): F32.9 - MAJOR DEPRESSIVE DISORDER, SINGLE EPISODE, UNSPECIFIED (9) Generalized weakness Assessment/Plan: -chronic -PT consulted Code(s): R53.1 - WEAKNESS
--- NOTE | 2016-07-17 15:36 | PN ---
Progress Note, Physician History of Present Illness: Pt alert. Nad. Dyspnea decreased. - Current Medication List Current Medications: Active Medications Albuterol/Ipratropium (Duoneb -) 1 amp NEB TIDR [facility] Last Admin: 07/17/16 14:00 Dose: 1 amp Apixaban (Eliquis -) 2.5 mg PO BID [facility] Last Admin: 07/17/16 10:59 Dose: 2.5 mg Atorvastatin Calcium (Lipitor -) 40 mg PO HS [facility] Last Admin: 07/16/16 22:14 Dose: 40 mg Azithromycin (Zithromax 500mg Ivpb (Pre-Docked)) 500 mg IVPB DAILY [facility] Last Admin: 07/17/16 10:59 Dose: 500 mg Brimonidine Tartrate (Alphagan 0.15% -) 1 drop OU DAILY [facility] Last Admin: 07/17/16 10:02 Dose: 1 drop Carvedilol (Coreg -) 6.25 mg PO BID [facility] Last Admin: 07/17/16 10:59 Dose: 6.25 mg Duloxetine HCl (Cymbalta -) 20 mg PO DAILY [facility] Last Admin: 07/17/16 10:59 Dose: 20 mg Gabapentin (Neurontin -) 100 mg PO TID [facility] Last Admin: 07/17/16 15:02 Dose: 100 mg Hydralazine HCl (Apresoline -) 10 mg PO BID [facility] Last Admin: 07/17/16 10:58 Dose: 10 mg Insulin Aspart (Novolog Vial Sliding Scale -) 1 vial SQ ACHS [facility] PRN Reason: Protocol Last Admin: 07/17/16 10:31 Dose: Not Given Insulin Detemir (Levemir Vial) 10 units SQ HS [facility] Ondansetron HCl (Zofran Injection) 4 mg IVPB Q6H PRN PRN Reason: NAUSEA Last Admin: 07/17/16 11:53 Dose: 4 mg Ranitidine HCl (Zantac -) 150 mg PO BID [facility] Fluticasone/Salmeterol (Advair 100mcg/50mcg -) 1 puff IH BID [facility] Last Admin: 07/17/16 10:30 Dose: 1 puff - Objective Vital Signs: Vital Signs Temperature 98.1 F 07/17/16 14:00 Pulse Rate 82 07/17/16 14:15 Respiratory Rate 18 04/18/17 14:00 Blood Pressure 103/62 04/18/17 14:00 O2 Sat by Pulse Oximetry (%) 98 07/17/16 14:15 Constitutional: Yes: No Distress Eyes: No: Sclera Icterus HENT: Yes: Atraumatic, Normocephalic, Other Neck: Yes: Supple Cardiovascular: Yes: Pulse Irregular. No: Regular Rate and Rhythm Respiratory: Yes: CTA Bilaterally Edema: No Neurological: Yes: Alert, Oriented Labs: CBC, BMP 07/17/16 06:00 07/17/16 06:00 Problem List - Problems (1) CHF exacerbation Code(s): I50.9 - HEART FAILURE, UNSPECIFIED Qualifiers: Congestive heart failure type: unspecified congestive heart failure type Qualified Code(s): I50.9 - Heart failure, unspecified (2) Acute on chronic respiratory failure with hypoxemia Code(s): J96.21 - ACUTE AND CHRONIC RESPIRATORY FAILURE WITH HYPOXIA (3) Atrial fibrillation Code(s): I48.91 - UNSPECIFIED ATRIAL FIBRILLATION Qualifiers: Atrial fibrillation type: chronic Qualified Code(s): I48.2 - Chronic atrial fibrillation Assessment/Plan AE COPD- improving CHF-improved A.Fib: ventricular rate ok Suggest O2 to maintain SaO2>90 Inhaled bronchodilators antibiotic cardiac meds and anticoagulation
--- NOTE | 2016-07-17 15:44 | PN ---
Progress Note (short form) - Note Progress Note: s: feeling better, less sob, no orthopnea, cp, palpd, dizzy o: Vital Signs Period Temp Pulse Resp BP Sys/Urbina Pulse Ox Last 24 Hr 97.9 F-98.4 F 82-91 18-20 103-144/62-87 95-98 Constitutional: Yes: Well Nourished, No Distress Eyes: No: Sclera Icterus HENT: No: Nasal Congestion Respiratory: trace wheezes, nl eff No: Accessory Muscle Use Gastrointestinal: Yes: Normal Bowel Sounds. No: Distention, Hepatomegaly, Palpable Mass, Tenderness Cardiovascular: Yes: Irregularly, irregular. JVD: no jvd Heart Sounds: Yes: S1, S2. No: Gallop Murmur: 2/6 systolic murmur at apex. No: Diastolic Murmur Extremities: No: Cold, Cyanosis Edema: no le edema Integumentary: No: Jaundice diaphoresis Neurological: Yes: Alert, Oriented (x3) Psychiatric: No: Agitated Current Medications Generic Name Dose Route Start Last Admin Trade Name Chan PRN Reason Stop Dose Admin Albuterol/Ipratropium 1 amp 07/15/16 22:00 07/17/16 14:00 Duoneb - NEB 1 amp TIDR VALERIA Administration Apixaban 2.5 mg 07/15/16 22:00 07/17/16 10:59 Eliquis - PO 2.5 mg BID VALERIA Administration Atorvastatin Calcium 40 mg 07/15/16 22:00 07/16/16 22:14 Lipitor - PO 40 mg HS VALERIA Administration Azithromycin 500 mg 07/15/16 19:45 07/17/16 10:59 Zithromax 500mg Ivpb (Pre-Docked) IVPB 500 mg DAILY VALERIA Administration Brimonidine Tartrate 1 drop 07/16/16 10:00 07/17/16 10:02 Alphagan 0.15% - OU 1 drop DAILY [facility]ERIA Administration Carvedilol 6.25 mg 07/15/16 22:00 07/17/16 10:59 Coreg - PO 6.25 mg BID VALERIA Administration Duloxetine HCl 20 mg 07/17/16 10:00 07/17/16 10:59 Cymbalta - PO 20 mg DAILY VALERIA Administration Gabapentin 100 mg 07/15/16 22:00 07/17/16 15:02 Neurontin - PO 100 mg TID VALERIA Administration Hydralazine HCl 10 mg 07/15/16 22:00 07/17/16 10:58 Apresoline - PO 10 mg BID VALERIA Administration Insulin Aspart 1 vial 07/15/16 22:00 07/17/16 10:31 Novolog Vial Sliding Scale - SQ Not Given ACHS [facility] Protocol Insulin Detemir 10 units 07/17/16 22:00 Levemir Vial SQ HS VALERIA Ondansetron HCl 4 mg 07/17/16 10:46 07/17/16 11:53 Zofran Injection IVPB 4 mg Q6H PRN Administration NAUSEA Ranitidine HCl 150 mg 07/17/16 22:00 Zantac - PO BID VALERIA Fluticasone/Salmeterol 1 puff 07/15/16 22:00 07/17/16 10:30 Advair 100mcg/50mcg - IH 1 puff BID VALERIA Administration Torsemide 20 mg 07/18/16 10:00 Demadex - PO DAILY VALERIA CBC, BMP 07/17/16 06:00 07/17/16 06:00 echo 07/2015: Mod LV dilation, mod-sev global systolic dysfunction, mod-sev MR, RVSP 40-50. Echo 05/2014: mod-sev reduced lvef, global hk, nl rv, mod-sev mr, mod phtn, ecg: afib, vr 67 bpm, diffue nonspecific tw changes, no sig change prior ecgs A/P: 85 yo f with systolic CHF, CAD with prior MS's treated medically, afib on eliquis, HTN, HL, h/o CVA, Mitral regurgitation, CKD, DM, COPD on home oxygen who is here with pain and swelling in legs. systolic chf - (baseline weight is low 160s lbs), Last standing weight here 163 lbs, close to baseline. Weights had been stable as outpatient on torsemide 20 mg/day. Dropped her bp with IV lasix here. Will resume torsemide 20 mg qd for tomorrow. - pulmonary following to assess pulmonary contribution to sob -? etiology of CMP (ischemic? HTN? DM? RICCI?)-- had plan for outpatient f/u work up atrial fibrillation: -hr controlled/slightly katrin on bb -[facility] 7, [facility] -cont eliquis. No need for additional asa. cad s/p remote mi x2 w/o cath: -Stable, no angina. -no acute ischemic changes on EKG, trop neg -declined cath on multiple occasions in past, per review or prior cardio notes -Continue home cardiac meds (statin, AC, bb) ckd: -creat ranges 1.8-2.2 on prior admits here -currently near baseline. Monitor s/p diuresis. mitral regurg, chronic (non-rheumatic): -? functional/secondary (most likely). currently without signs of valvular decompensation, con't to monitor. pulmonary HTN: -? all sec to LV chf, vs component of chronic hypoxia from copd -needs reassessment. Had plans for office echo once well diuresed but unclear if it was done. htn: -cont current meds
[2016-07-17] MEDS ORDERED: INSULIN (NOVOLOG) ASPART 100 UNITS/ML 10ML VIAL ONE (21:19)
[2016-07-17] MEDS: INSULIN DETEMIR 100 UNITS/ML MDV SQ SCH (22:43)
[2016-07-17] MEDS: ATORVASTATIN CA 40 MG TABLET (FP) PO SCH (22:43)
[2016-07-17] MEDS: RANITIDINE HCL 150 MG TABLET (FP) PO SCH (22:43)
[2016-07-18] MEDS: ALBUTEROL SO4 2.5/IPRATROPIUM 0.5 INH SOL 3 ML VIAL.NEB. NEB SCH ×3 (06:21→21:46)
[2016-07-18] MEDS: GABAPENTIN 100 MG CAPSULE (FP) PO SCH ×3 (06:44→21:13)
[2016-07-18] MEDS: INSULIN SLIDING SCALE (NOVOLOG) 1 VIAL SQ SCH ×4 (06:44→21:14)
[2016-07-18 07:31] LABS: BASOPHIL 0.6 % (0-2.0); EOSINOPHIL 1.4 % (0-4.5); MCH 30.3 pg (25.7-33.7); MCHC 33.5 g/dl (32.0-36.0); MEAN CELL VOLUME 90.4 fl (80-96); MEAN PLT VOLUME 7.8 fl (7.5-11.1); NEUTROPHILS 76.5 % (42.8-82.8); PLATELET COUNT 160 K/MM3 (134-434); RDW 15.9 % (11.6-15.6); WHITE BLOOD COUNT 7.2 K/mm3 (4.0-10.0)
[2016-07-18 07:41] LABS: CALCIUM 7.7 mg/dL (8.5-10.1); CREATININE 2.1 mg/dL (0.55-1.02); MAGNESIUM 2.4 mg/dL (1.8-2.4); PHOSPHOROUS 4.3 mg/dL (2.5-4.9)
[2016-07-18 07:56] LABS: COCKROFT - GAULT 23.4005
[2016-07-18] MEDS: TORSEMIDE 20 MG TABLET (FP) PO SCH (09:39)
[2016-07-18] MEDS: RANITIDINE HCL 150 MG TABLET (FP) PO SCH ×2 (09:39→21:14)
[2016-07-18] MEDS: AZITHROMYCIN IVPB 500 MG/250 ML D5W PRE-DOCKED IVPB SCH (09:39)
[2016-07-18] MEDS: DULoxetine HCL 20 MG CAPSULE.DR (FP) PO SCH (09:39)
[2016-07-18] MEDS: APIXABAN 2.5 MG TABLET PO SCH ×2 (09:39→21:12)
[2016-07-18] MEDS: FLUTICASONE/SALMETEROL 100 MCG/50 MCG DISKUS IH SCH ×2 (09:40→21:12)
[2016-07-18] MEDS: CARVEDILOL 6.25 MG TABLET (FP) PO SCH ×2 (09:40→21:12)
[2016-07-18] MEDS: hydrALAZINE HCL 10 MG TABLET PO SCH (09:40)
[2016-07-18] MEDS: BRIMONIDINE TARTRATE 0.15% OPHTHALMIC 5 ML BOTTLE OU SCH (09:40)
--- NOTE | 2016-07-18 11:52 | PN ---
Progress Note (short form) - Note Progress Note: s: feeling better, less sob, no orthopnea, cp, palps, dizzy o: Vital Signs Period Temp Pulse Resp BP Sys/Urbina Pulse Ox Last 24 Hr 97.6 F-98.9 F 76-90 18-18 83-115/44-62 95-98 Constitutional: Yes: Well Nourished, No Distress Eyes: No: Sclera Icterus HENT: No: Nasal Congestion Respiratory: trace wheezes, nl eff No: Accessory Muscle Use Gastrointestinal: Yes: Normal Bowel Sounds. No: Distention, Hepatomegaly, Palpable Mass, Tenderness Cardiovascular: Yes: Irregularly, irregular. JVD: no jvd Heart Sounds: Yes: S1, S2. No: Gallop Murmur: 2/6 systolic murmur at apex. No: Diastolic Murmur Extremities: No: Cold, Cyanosis Edema: no le edema Integumentary: No: Jaundice diaphoresis Neurological: Yes: Alert, Oriented (x3) Psychiatric: No: Agitated Current Medications Generic Name Dose Route Start Last Admin Trade Name Freq PRN Reason Stop Dose Admin Acetaminophen 650 mg 07/18/16 11:45 Tylenol - PO Q6H PRN FEVER OR PAIN Albuterol/Ipratropium 1 amp 07/15/16 22:00 07/18/16 06:21 Duoneb - NEB 1 amp TIDR VALERIA Administration Apixaban 2.5 mg 07/15/16 22:00 07/18/16 09:39 Eliquis - PO 2.5 mg BID VALERIA Administration Atorvastatin Calcium 40 mg 07/15/16 22:00 07/17/16 22:43 Lipitor - PO 40 mg HS VALERIA Administration Brimonidine Tartrate 1 drop 07/16/16 10:00 07/18/16 09:40 Alphagan 0.15% - OU 1 drop DAILY VALERIA Administration Carvedilol 6.25 mg 07/15/16 22:00 07/18/16 09:40 Coreg - PO Not Given BID VALERIA Duloxetine HCl 20 mg 07/17/16 10:00 07/18/16 09:39 Cymbalta - PO 20 mg DAILY VALERIA Administration Gabapentin 100 mg 07/15/16 22:00 07/18/16 06:44 Neurontin - PO 100 mg TID VALERIA Administration Insulin Aspart 1 vial 07/15/16 22:00 07/18/16 06:44 Novolog Vial Sliding Scale - SQ Not Given ACHS [facility] Protocol Insulin Detemir 10 units 07/17/16 22:00 07/17/16 22:43 Levemir Vial SQ 10 units HS VALERIA Administration Ondansetron HCl 4 mg 07/17/16 10:46 07/17/16 11:53 Zofran Injection IVPB 4 mg Q6H PRN Administration NAUSEA Ranitidine HCl 150 mg 07/17/16 22:00 07/18/16 09:39 Zantac - PO 150 mg BID VALERIA Administration Fluticasone/Salmeterol 1 puff 07/15/16 22:00 07/18/16 09:40 Advair 100mcg/50mcg - IH 1 puff BID VALERIA Administration Torsemide 20 mg 07/18/16 10:00 07/18/16 09:39 Demadex - PO 20 mg DAILY VALERIA Administration CBC, BMP 07/18/16 06:00 07/18/16 06:00 echo 07/2015: Mod LV dilation, mod-sev global systolic dysfunction, mod-sev MR, RVSP 40-50. Echo 05/2014: mod-sev reduced lvef, global hk, nl rv, mod-sev mr, mod phtn, ecg: afib, vr 67 bpm, diffue nonspecific tw changes, no sig change prior ecgs A/P: 85 yo f with systolic CHF, CAD with prior [place]'s treated medically, afib on eliquis, HTN, HL, h/o CVA, Mitral regurgitation, CKD, DM, COPD on home oxygen who is here with pain and swelling in legs. systolic chf - (baseline weight is low 160s lbs), Last standing weight here 163 lbs, close to baseline. Weights had been stable as outpatient on torsemide 20 mg/day. Dropped her bp with IV lasix here. Cont home torsemide 20 mg qd for maintenance. - pulmonary following to assess pulmonary contribution to sob -? etiology of CMP (ischemic? HTN? DM? RICCI?)-- had plan for outpatient f/u work up atrial fibrillation: -hr controlled/slightly katrin on bb -CHADS-VASC 7, [facility] AC -cont eliquis. No need for additional asa. cad s/p remote mi x2 w/o cath: -Stable, no angina. -no acute ischemic changes on EKG, trop neg -declined cath on multiple occasions in past, per review or prior cardio notes -Continue home cardiac meds (statin, AC, bb) ckd: -creat ranges 1.8-2.2 on prior admits here -currently near baseline. Monitor s/p diuresis. mitral regurg, chronic (non-rheumatic): -? functional/secondary (most likely). currently without signs of valvular decompensation, con't to monitor. pulmonary HTN: -? all sec to LV chf, vs component of chronic hypoxia from copd -needs reassessment. Had plans for office echo once well diuresed but unclear if it was done. htn: -cont current meds
--- NOTE | 2016-07-18 11:52 | PN ---
Progress Note, Physician Chief Complaint: Ms Boucher says her stomach is burning but is better than yesterday. She says she is still having weakness. She is concerned about her blood pressure and her weight. She says her breathing is better, she is not having chest pain. - Current Medication List Current Medications: Active Medications Acetaminophen (Tylenol -) 650 mg PO Q6H PRN PRN Reason: FEVER OR PAIN Albuterol/Ipratropium (Duoneb -) 1 amp NEB TIDR [facility] Last Admin: 07/18/16 06:21 Dose: 1 amp Apixaban (Eliquis -) 2.5 mg PO BID [facility] Last Admin: 07/18/16 09:39 Dose: 2.5 mg Atorvastatin Calcium (Lipitor -) 40 mg PO [facility] Last Admin: 07/17/16 22:43 Dose: 40 mg Brimonidine Tartrate (Alphagan 0.15% -) 1 drop OU DAILY [facility] Last Admin: 07/18/16 09:40 Dose: 1 drop Carvedilol (Coreg -) 6.25 mg PO BID [facility] Last Admin: 07/18/16 09:40 Dose: Not Given Duloxetine HCl (Cymbalta -) 20 mg PO DAILY [facility] Last Admin: 07/18/16 09:39 Dose: 20 mg Gabapentin (Neurontin -) 100 mg PO TID [facility] Last Admin: 07/18/16 06:44 Dose: 100 mg Insulin Aspart (Novolog Vial Sliding Scale -) 1 vial SQ [facility] PRN Reason: Protocol Last Admin: 07/18/16 06:44 Dose: Not Given Insulin Detemir (Levemir Vial) 10 units SQ [facility] Last Admin: 07/17/16 22:43 Dose: 10 units Ondansetron HCl (Zofran Injection) 4 mg IVPB Q6H PRN PRN Reason: NAUSEA Last Admin: 07/17/16 11:53 Dose: 4 mg Ranitidine HCl (Zantac -) 150 mg PO BID [facility] Last Admin: 07/18/16 09:39 Dose: 150 mg Fluticasone/Salmeterol (Advair 100mcg/50mcg -) 1 puff IH BID [facility] Last Admin: 07/18/16 09:40 Dose: 1 puff Torsemide (Demadex -) 20 mg PO DAILY [facility] Last Admin: 07/18/16 09:39 Dose: 20 mg - Objective Vital Signs: Vital Signs Temperature 98.9 F 07/18/16 07:55 Pulse Rate 90 07/18/16 07:55 Respiratory Rate 18 07/18/16 07:55 Blood Pressure 108/48 07/18/16 07:55 O2 Sat by Pulse Oximetry (%) 95 07/18/16 09:00 Constitutional: Yes: Well Nourished, No Distress, Calm Cardiovascular: Yes: Regular Rate and Rhythm. No: Gallop, Murmur, Rub Respiratory: Yes: Regular, CTA Bilaterally. No: Rales, Rhonchi, Wheezes Gastrointestinal: Yes: Normal Bowel Sounds, Soft. No: Distention, Tenderness Extremities: Yes: WNL Edema: No Labs: CBC, BMP 07/18/16 06:00 07/18/16 06:00 Problem List - Problems (1) Acute on chronic respiratory failure with hypoxemia Code(s): J96.21 - ACUTE AND CHRONIC RESPIRATORY FAILURE WITH HYPOXIA (2) Chronic kidney disease (CKD) Code(s): N18.9 - CHRONIC KIDNEY DISEASE, UNSPECIFIED Qualifiers: Chronic kidney disease stage: stage 4 (severe) Qualified Code(s): N18.4 - Chronic kidney disease, stage 4 (severe) (3) Congestive heart failure Code(s): I50.9 - HEART FAILURE, UNSPECIFIED Qualifiers: Congestive heart failure type: diastolic Congestive heart failure chronicity: acute on chronic Qualified Code(s): I50.33 - Acute on chronic diastolic (congestive) heart failure (4) Diabetes mellitus Code(s): E11.9 - TYPE 2 DIABETES MELLITUS WITHOUT COMPLICATIONS Qualifiers: Diabetes mellitus type: type 2 Diabetes mellitus complication status: with kidney complications Diabetes mellitus complication detail: with chronic kidney disease (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 Code(s): E11.43 - TYPE 2 DIABETES W DIABETIC AUTONOMIC (POLY)NEUROPATHY K31.84 - GASTROPARESIS (6) HLD (hyperlipidemia) Code(s): E78.5 - HYPERLIPIDEMIA, UNSPECIFIED (7) Hypotension Code(s): I95.9 - HYPOTENSION, UNSPECIFIED (8) Depression Code(s): F32.9 - MAJOR DEPRESSIVE DISORDER, SINGLE EPISODE, UNSPECIFIED (9) Generalized weakness Code(s): R53.1 - WEAKNESS Assessment/Plan (1) Acute on chronic respiratory failure with hypoxemia Assessment/Plan: -resolved -will stop antibiotics -appreciate pulmonary assistance Code(s): J96.21 - ACUTE AND CHRONIC RESPIRATORY FAILURE WITH HYPOXIA (2) Chronic kidney disease (CKD) Assessment/Plan: -improving Code(s): N18.9 - CHRONIC KIDNEY DISEASE, UNSPECIFIED Qualifiers: Chronic kidney disease stage: stage 4 (severe) Qualified Code(s): N18.4 - Chronic kidney disease, stage 4 (severe) (3) Congestive heart failure Assessment/Plan: -appreciate cardiology assistance -restarted torsemide today -monitor blood pressure and renal function Code(s): I50.9 - HEART FAILURE, UNSPECIFIED Qualifiers: Congestive heart failure type: diastolic Congestive heart failure chronicity: acute on chronic Qualified Code(s): I50.33 - Acute on chronic diastolic (congestive) heart failure (4) Diabetes mellitus Assessment/Plan: -diabetic diet -continue SSI -low dose levemir added with good response Code(s): E11.9 - TYPE 2 DIABETES MELLITUS WITHOUT COMPLICATIONS Qualifiers: Diabetes mellitus type: type 2 Diabetes mellitus complication status: with kidney complications Diabetes mellitus complication detail: with chronic kidney disease (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 Assessment/Plan: -slight exacerbation, improved -add back ranitidine bid, patient takes at home Code(s): E11.43 - TYPE 2 DIABETES W DIABETIC AUTONOMIC (POLY)NEUROPATHY K31.84 - GASTROPARESIS (6) HLD (hyperlipidemia) Assessment/Plan: -continue statin Code(s): E78.5 - HYPERLIPIDEMIA, UNSPECIFIED (7) Hypotension Assessment/Plan: -still with low normal blood pressure -patient concerned she is having symptoms -will stop hydralazine Code(s): I95.9 - HYPOTENSION, UNSPECIFIED (8) Depression Assessment/Plan: -continue cymbalta Code(s): F32.9 - MAJOR DEPRESSIVE DISORDER, SINGLE EPISODE, UNSPECIFIED (9) Generalized weakness Assessment/Plan: -chronic -PT consulted Code(s): R53.1 - WEAKNESS
--- NOTE | 2016-07-18 18:06 | PN ---
Progress Note, Physician History of Present Illness: Pt alert. Nad. Dyspnea decreased. - Current Medication List Current Medications: Active Medications Acetaminophen (Tylenol -) 650 mg PO Q6H PRN PRN Reason: FEVER OR PAIN Albuterol/Ipratropium (Duoneb -) 1 amp NEB TIDR [facility] Last Admin: 07/18/16 14:00 Dose: 1 amp Apixaban (Eliquis -) 2.5 mg PO BID [facility] Last Admin: 07/18/16 09:39 Dose: 2.5 mg Atorvastatin Calcium (Lipitor -) 40 mg PO HS [facility] Last Admin: 07/17/16 22:43 Dose: 40 mg Brimonidine Tartrate (Alphagan 0.15% -) 1 drop OU DAILY [facility] Last Admin: 07/18/16 09:40 Dose: 1 drop Carvedilol (Coreg -) 6.25 mg PO BID [facility] Last Admin: 07/18/16 09:40 Dose: Not Given Duloxetine HCl (Cymbalta -) 20 mg PO DAILY [facility] Last Admin: 07/18/16 09:39 Dose: 20 mg Gabapentin (Neurontin -) 100 mg PO TID [facility] Last Admin: 07/18/16 13:33 Dose: 100 mg Insulin Aspart (Novolog Vial Sliding Scale -) 1 vial SQ ACHS [facility] PRN Reason: Protocol Last Admin: 07/18/16 16:40 Dose: Not Given Insulin Detemir (Levemir Vial) 10 units SQ HS [facility] Last Admin: 07/17/16 22:43 Dose: 10 units Ondansetron HCl (Zofran Injection) 4 mg IVPB Q6H PRN PRN Reason: NAUSEA Last Admin: 07/17/16 11:53 Dose: 4 mg Ranitidine HCl (Zantac -) 150 mg PO BID [facility] Last Admin: 07/18/16 09:39 Dose: 150 mg Fluticasone/Salmeterol (Advair 100mcg/50mcg -) 1 puff IH BID [facility] Last Admin: 07/18/16 09:40 Dose: 1 puff Torsemide (Demadex -) 20 mg PO DAILY [facility] Last Admin: 07/18/16 09:39 Dose: 20 mg - Objective Vital Signs: Vital Signs Temperature 97.5 F L 07/18/16 18:00 Pulse Rate 87 07/18/16 18:00 Respiratory Rate 20 07/18/16 18:00 Blood Pressure 128/62 07/18/16 18:00 O2 Sat by Pulse Oximetry (%) 95 07/18/16 09:00 Constitutional: Yes: No Distress Eyes: No: Sclera Icterus HENT: Yes: Atraumatic, Normocephalic Neck: Yes: Supple, Trachea Midline Cardiovascular: Yes: Pulse Irregular Respiratory: Yes: CTA Bilaterally Gastrointestinal: Yes: Soft. No: Tenderness Extremities: No: Calf Tenderness Edema: No Neurological: Yes: Alert, Oriented Labs: CBC, BMP 07/18/16 06:00 07/18/16 06:00 Problem List - Problems (1) CHF exacerbation Code(s): I50.9 - HEART FAILURE, UNSPECIFIED Qualifiers: Congestive heart failure type: unspecified congestive heart failure type Qualified Code(s): I50.9 - Heart failure, unspecified (2) Acute on chronic respiratory failure with hypoxemia Code(s): J96.21 - ACUTE AND CHRONIC RESPIRATORY FAILURE WITH HYPOXIA (3) Atrial fibrillation Code(s): I48.91 - UNSPECIFIED ATRIAL FIBRILLATION Qualifiers: Atrial fibrillation type: chronic Qualified Code(s): I48.2 - Chronic atrial fibrillation Assessment/Plan AE COPD-resoiratory status improved CHF-improved A.Fib: ventricular rate ok Suggest O2 to maintain SaO2>90 Inhaled bronchodilators cardiac meds and anticoagulation
[2016-07-18] MEDS: ACETAMINOPHEN 325 MG TABLET (FP) PO PRN (19:04)
[2016-07-18] MEDS: ATORVASTATIN CA 40 MG TABLET (FP) PO SCH (21:14)
[2016-07-18] MEDS: INSULIN DETEMIR 100 UNITS/ML MDV SQ SCH (21:15)
[2016-07-19 05:44] VITALS: PULSE 80
[2016-07-19] MEDS: GABAPENTIN 100 MG CAPSULE (FP) PO SCH ×2 (06:11→15:48)
[2016-07-19] MEDS: INSULIN SLIDING SCALE (NOVOLOG) 1 VIAL SQ SCH ×2 (06:11→15:46)
[2016-07-19] MEDS: ALBUTEROL SO4 2.5/IPRATROPIUM 0.5 INH SOL 3 ML VIAL.NEB. NEB SCH ×2 (06:25→14:49)
[2016-07-19 07:02] LABS: BASOPHIL 0.7 % (0-2.0); EOSINOPHIL 2.1 % (0-4.5); MCH 29.9 pg (25.7-33.7); MCHC 32.8 g/dl (32.0-36.0); MEAN PLT VOLUME 7.5 fl (7.5-11.1); NEUTROPHILS 76.2 % (42.8-82.8); PLATELET COUNT 162 K/MM3 (134-434); WHITE BLOOD COUNT 7.2 K/mm3 (4.0-10.0)
[2016-07-19 07:50] LABS: COCKROFT - GAULT 23.239; CREATININE 2.1 mg/dL (0.55-1.02); MAGNESIUM 2.5 mg/dL (1.8-2.4); PHOSPHOROUS 4.7 mg/dL (2.5-4.9)
[2016-07-19] MEDS ORDERED: PT OWN MED DRAWER 7, Y5N ONE (10:31)
[2016-07-19] MEDS: ACETAMINOPHEN 325 MG TABLET (FP) PO PRN (10:40)
[2016-07-19] MEDS: APIXABAN 2.5 MG TABLET PO SCH (10:40)
[2016-07-19] MEDS: RANITIDINE HCL 150 MG TABLET (FP) PO SCH (10:40)
[2016-07-19] MEDS: DULoxetine HCL 20 MG CAPSULE.DR (FP) PO SCH (10:40)
[2016-07-19] MEDS: TORSEMIDE 20 MG TABLET (FP) PO SCH (10:41)
[2016-07-19] MEDS: CARVEDILOL 6.25 MG TABLET (FP) PO SCH (10:41)
[2016-07-19] MEDS: FLUTICASONE/SALMETEROL 100 MCG/50 MCG DISKUS IH SCH (10:41)
[2016-07-19] MEDS: BRIMONIDINE TARTRATE 0.15% OPHTHALMIC 5 ML BOTTLE OU SCH (10:43)
--- NOTE | 2016-07-19 12:18 | PN ---
Progress Note (short form) - Note Progress Note: s: no cp, sob, palps, dizzy; feels tired today o: Vital Signs Period Temp Pulse Resp BP Sys/Urbina Pulse Ox Last 24 Hr 97.5 F-98.4 F 79-88 18-20 105-133/49-66 99 Constitutional: Yes: Well Nourished, No Distress Eyes: No: Sclera Icterus HENT: No: Nasal Congestion Respiratory: trace wheezes, nl eff No: Accessory Muscle Use Gastrointestinal: Yes: Normal Bowel Sounds. No: Distention, Hepatomegaly, Palpable Mass, Tenderness Cardiovascular: Yes: Irregularly, irregular. JVD: no jvd Heart Sounds: Yes: S1, S2. No: Gallop Murmur: 2/6 systolic murmur at apex. No: Diastolic Murmur Extremities: No: Cold, Cyanosis Edema: no le edema Integumentary: No: Jaundice diaphoresis Neurological: Yes: Alert, Oriented (x3) Psychiatric: No: Agitated Current Medications Generic Name Dose Route Start Last Admin Trade Name Freq PRN Reason Stop Dose Admin Acetaminophen 650 mg 07/18/16 11:45 07/19/16 10:40 Tylenol - PO 650 mg Q6H PRN Administration FEVER OR PAIN Albuterol/Ipratropium 1 amp 07/15/16 22:00 07/19/16 06:25 Duoneb - NEB 1 amp TIDR VALERIA Administration Apixaban 2.5 mg 07/15/16 22:00 07/19/16 10:40 Eliquis - PO 2.5 mg BID [facility] Administration Atorvastatin Calcium 40 mg 07/15/16 22:00 07/18/16 21:14 Lipitor - PO 40 mg HS [facility]ERIA Administration Brimonidine Tartrate 1 drop 07/16/16 10:00 07/19/16 10:43 Alphagan 0.15% - OU 1 drop DAILY [facility] Administration Carvedilol 6.25 mg 07/15/16 22:00 07/19/16 10:41 Coreg - PO 6.25 mg BID [facility]ER[facility] Administration Duloxetine HCl 20 mg 07/17/16 10:00 07/19/16 10:40 Cymbalta - PO 20 mg DAILY [facility] Administration Gabapentin 100 mg 07/15/16 22:00 07/19/16 06:11 Neurontin - PO 100 mg TID [facility] Administration Insulin Aspart 1 vial 07/15/16 22:00 07/19/16 06:11 Novolog Vial Sliding Scale - SQ Not Given ACHS [facility] Protocol Insulin Detemir 10 units 07/17/16 22:00 07/18/16 21:15 Levemir Vial SQ 10 units HS [facility] Administration Ondansetron HCl 4 mg 07/17/16 10:46 07/17/16 11:53 Zofran Injection IVPB 4 mg Q6H PRN Administration NAUSEA Ranitidine HCl 150 mg 07/17/16 22:00 07/19/16 10:40 Zantac - PO 150 mg BID [facility] Administration Fluticasone/Salmeterol 1 puff 07/15/16 22:00 07/19/16 10:41 Advair 100mcg/50mcg - IH 1 puff BID [facility] Administration Torsemide 20 mg 07/18/16 10:00 07/19/16 10:41 Demadex - PO 20 mg DAILY [facility] Administration CBC, BMP 07/19/16 06:00 07/19/16 06:00 echo 07/2015: Mod LV dilation, mod-sev global systolic dysfunction, mod-sev MR, RVSP 40-50. Echo 05/2014: mod-sev reduced lvef, global hk, nl rv, mod-sev mr, mod phtn, ecg: afib, vr 67 bpm, diffuse nonspecific tw changes, no sig change prior ecgs A/P: 85 yo f with systolic CHF, CAD with prior [facility]'s treated medically, afib on eliquis, HTN, HL, h/o CVA, Mitral regurgitation, CKD, DM, COPD on home oxygen who is here with pain and swelling in legs. systolic chf - (baseline weight is low 160s lbs), Last standing weight here 163 lbs, close to baseline. Weights had been stable as outpatient on torsemide 20 mg/day. Dropped her bp with IV lasix here. Cont home torsemide 20 mg qd for maintenance. -? etiology of CMP (ischemic? HTN? DM? RICCI?)-- had plan for outpatient f/u work up atrial fibrillation: -hr controlled on bb -[facility] -cont eliquis. No need for additional asa. cad s/p remote mi x2 w/o cath: -Stable, no angina. -no acute ischemic changes on EKG, trop neg -declined cath on multiple occasions in past, per review or prior cardio notes -Continue home cardiac meds (statin, AC, bb) ckd: -creat ranges 1.8-2.2 on prior admits here -currently near baseline. mitral regurg, chronic (non-rheumatic): -? functional/secondary (most likely). currently without signs of valvular decompensation, con't to monitor. pulmonary HTN: -? all sec to LV chf, vs component of chronic hypoxia from copd -needs reassessment. Had plans for office echo once well diuresed but unclear if it was done. htn: -cont current meds copd/sob: -improved, now off abx, pulm following
[2016-07-19 14:56] VITALS: BP 146/57; TEMP 98.4
--- NOTE | 2016-07-19 16:03 | DS ---
Physical Examination Vital Signs: Vital Signs Temperature 98.4 F 07/19/16 14:53 Pulse Rate 80 07/19/16 14:53 Respiratory Rate 20 07/19/16 14:53 Blood Pressure 146/57 07/19/16 14:53 O2 Sat by Pulse Oximetry (%) 99 07/18/16 21:00 Constitutional: Yes: Well Nourished, No Distress, Calm Cardiovascular: Yes: Regular Rate and Rhythm. No: Gallop, Murmur, Rub Respiratory: Yes: Regular, CTA Bilaterally, On Nasal O2. No: Rales, Rhonchi, Wheezes Gastrointestinal: Yes: Normal Bowel Sounds, Soft. No: Distention, Tenderness Extremities: Yes: WNL Edema: No Labs: CBC, BMP 07/19/16 06:00 07/19/16 06:00 Discharge Summary Reason For Visit: ACUE CHRONIC CHF Current Active Problems CHF exacerbation (Acute) Depression (Acute) Hypotension (Acute) Hospital Course: (1) Acute on chronic respiratory failure with hypoxemia Code(s): J96.21 - ACUTE AND CHRONIC RESPIRATORY FAILURE WITH HYPOXIA (2) Chronic kidney disease (CKD) Code(s): N18.9 - CHRONIC KIDNEY DISEASE, UNSPECIFIED Qualifiers: Chronic kidney disease stage: stage 4 (severe) Qualified Code(s): N18.4 - Chronic kidney disease, stage 4 (severe) (3) Congestive heart failure Code(s): I50.9 - HEART FAILURE, UNSPECIFIED Qualifiers: Congestive heart failure type: diastolic Congestive heart failure chronicity: acute on chronic Qualified Code(s): I50.33 - Acute on chronic diastolic (congestive) heart failure (4) Diabetes mellitus Code(s): E11.9 - TYPE 2 DIABETES MELLITUS WITHOUT COMPLICATIONS Qualifiers: Diabetes mellitus type: type 2 Diabetes mellitus complication status: with kidney complications Diabetes mellitus complication detail: with chronic kidney disease (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 Code(s): E11.43 - TYPE 2 DIABETES W DIABETIC AUTONOMIC (POLY)NEUROPATHY K31.84 - GASTROPARESIS (6) HLD (hyperlipidemia) Code(s): E78.5 - HYPERLIPIDEMIA, UNSPECIFIED (7) Hypotension Code(s): I95.9 - HYPOTENSION, UNSPECIFIED (8) Depression Code(s): F32.9 - MAJOR DEPRESSIVE DISORDER, SINGLE EPISODE, UNSPECIFIED (9) Generalized weakness Code(s): R53.1 - WEAKNESS Ms Boucher is an 85 year old female with history of chronic respiratory failure secondary to COPD, chronic diastolic dysfunction, and gastroparesis secondary to diabetes who comes in with acute on chronic respiratory failure from COPD exacerbation. She was admitted to the hospital, there was concern for CHF exacerbation and was given IV lasix. After this she became hypotensive so this was stopped. She was noted to have low normal blood pressure and her hydralazine was stopped. Her blood pressure improved. She was seen by pulmonary and cardiology and treated. She improved. She was seen by physical therapy and did well. Currently she is safe for discharge home on home oxygen. 40 minutes spent in preparation of this discharge Condition: Stable - Instructions Diet, Activity, Other Instructions: resume previous diet and activity. Continuous oxygen at home. Referrals: Roni Arteaga MD [Staff Physician] - Mynor Laws MD [Staff Physician] - Yury Alvarado MD [Staff Physician] - Disposition: VNS/HOME HEALTH CARE - Home Medications Comprehensive Discharge Medication List: Ambulatory Orders Albuterol 2.5/Ipratropium 0.5 [Duoneb -] 1 neb IH BID 08/08/15 Atorvastatin Ca [Lipitor] 40 mg PO HS 08/08/15 Brimonidine Tartrate [Alphagan 0.15% -] 1 drop OU DAILY 08/08/15 Carvedilol 6.25 mg PO BID 08/08/15 Salmeterol/Fluticasone [Advair 100Mcg/50Mcg -] 1 inh PO BID 08/08/15 Apixaban [Eliquis -] 2.5 mg PO BID #60 tablet 03/03/16 Torsemide [Demadex -] 20 mg PO DAILY #30 tablet 03/03/16 Gabapentin 100 mg PO TID 07/15/16 Insulin Aspart [Novolog] 0 unit SQ ASDIR 07/15/16 Insulin Glargine,Hum.rec.anlog [Lantus (10mL VIAL) -] 25 units SQ HS 07/15/16 Duloxetine HCl [Cymbalta -] 20 mg PO DAILY #30 cap.sr 07/19/16 Ranitidine [Zantac -] 150 mg PO BID tablet 07/19/16
== END 2016-07-19 17:22 | disposition home health service (06) | DRG 291 ==
LOC: JER 15:23 → JERBED 17:57 → J7W 07-16 17:55
PROVIDERS: ADMIT Internal Medicine; ATTEND Internal Medicine
DX: I13.0 Hypertensive heart and chronic kidney disease with heart failure and stage 1 through stage 4 chronic kidney disease, or unspecified chronic kidney disease (principal); I50.33 Acute on chronic diastolic (congestive) heart failure; J96.21 Acute and chronic respiratory failure with hypoxia; N18.4 Chronic kidney disease, stage 4 (severe); J44.1 Chronic obstructive pulmonary disease with (acute) exacerbation; E11.43 Type 2 diabetes mellitus with diabetic autonomic (poly)neuropathy; K31.84 Gastroparesis; E78.5 Hyperlipidemia, unspecified; F32.9 Major depressive disorder, single episode, unspecified; R53.1 Weakness; I27.2 Other secondary pulmonary hypertension; E11.22 Type 2 diabetes mellitus with diabetic chronic kidney disease; I34.0 Nonrheumatic mitral (valve) insufficiency; I48.2 Chronic atrial fibrillation; I95.9 Hypotension, unspecified; Z87.891 Personal history of nicotine dependence
CPT/HCPCS: 36415; 70450-TC; 71010-TC; 80048; 80053; 81003; 82550; 83605; 83735; 83880; 84100; 84484; 85025; 87040; 93005; 93010; 94640; 97116-GP; 97161-GP; 99285-25

== ENCOUNTER 2017-03-23 11:13 | Inpatient (IN) | payer OTHER ==
--- NOTE | 2017-03-23 11:25 | PDOC ---
History of Present Illness - General History Source: Patient Exam Limitations: Other (Poor historian) - History of Present Illness Initial Comments: 03/23/17 11:52 The patient is a 86 year old female with a significant PMH of who presents to the emergency department with COPD (on 3L home O2), HTN, hyperlipidemia, diabetes, CHF, past stroke (8 years ago), AFIB (on Eliquis), GERD and recent pneumonia who presents to the emergency department with bruising and right leg pain s/p falls yesterday and today. As per EMS, the patient reports falling more than usual lately. She reports about 4 falls within the past 2 days. As per EMS, the patient was ambulatory on scene s/p the most recent fall earlier today. EMS notes that the patient lives alone and is visited by a home health aide 3 days a week. The patient is a poor historian. Allergies: Sulfonamide antibiotics Past surgical history: Colostomy reversal. Umbilical hernia repair. Appendectomy. Social history: (+) Former smoker. No reported alcohol or drug use. Tetanus up to date. PCP: Dr. Arteaga <Jigar Lima - Last Filed: 03/23/17 15:52> <Karen Hand - Last Filed: 03/23/17 15:58> - General Stated Complaint: FALL Time Seen by Provider: 03/23/17 11:25 Past History <Jigar Lima - Last Filed: 03/23/17 15:52> - Past Medical History Anemia: No Asthma: Yes Cancer: No Cardiac Disorders: Yes (MS X3, CHF, AF) CVA: Yes COPD: Yes CHF: Yes Dementia: No Diabetes: Yes GI Disorders: Yes (GERD) Disorders: Yes (abnormal Renal function) HTN: Yes Hypercholesterolemia: Yes Liver Disease: No Seizures: No Thyroid Disease: No - Surgical History Abdominal Surgery: Yes (COLOSTOMY REVERSED, UMBILICAL HERNIA REPAIR) Appendectomy: Yes Cardiac Surgery: No Cholecystectomy: No Lung Surgery: No Neurologic Surgery: No Orthopedic Surgery: No - Immunization History Immunization Up to Date: Yes - Suicide/Smoking/Psychosocial Hx Smoking Status: No Smoking History: Former smoker Have you smoked in the past 12 months: No Number of Cigarettes Smoked Daily: 0 If you are a former smoker, when did you quit?: 2009 'Breaking Loose' booklet given: 10/13/14 Hx Alcohol Use: No Drug/Substance Use Hx: No Substance Use Type: None Hx Substance Use Treatment: No <Karen Hand - Last Filed: 03/23/17 15:58> - Past Medical History Allergies/Adverse Reactions: Allergies Allergy/AdvReac Type Severity Reaction Status Date / Time Sulfa (Sulfonamide Allergy Vomiting Verified 03/23/17 11:31 Antibiotics) [Sulfa(Sulfonamide Antibiotics)] Home Medications: Ambulatory Orders Albuterol 2.5/Ipratropium 0.5 [Duoneb -] 1 neb IH BID 08/08/15 Atorvastatin Ca [Lipitor] 40 mg PO HS 08/08/15 Brimonidine Tartrate [Alphagan 0.15% -] 1 drop OU DAILY 08/08/15 Apixaban [Eliquis -] 2.5 mg PO BID #60 tablet 03/03/16 Torsemide [Demadex -] 20 mg PO DAILY #30 tablet 03/03/16 Gabapentin 100 mg PO TID 07/15/16 Insulin Glargine,Hum.rec.anlog [Lantus (10mL VIAL) -] 25 units SQ HS 07/15/16 Duloxetine HCl [Cymbalta -] 20 mg PO DAILY #30 cap.sr 07/19/16 Ranitidine [Zantac -] 150 mg PO BID tablet 07/19/16 Albuterol 0.083% Nebulizer Anny [Ventolin 0.083% Nebulizer Soln -] 1 amp NEB BID amp 02/04/17 Carvedilol [Coreg -] 12.5 mg PO BID tablet 02/04/17 Hydralazine HCl [Apresoline -] 10 mg PO BID tablet 02/04/17 Insulin Sliding Scale [Novolog Vial Sliding Scale -] 1 vial SQ ACHS units 02/04 Review of Systems - Review of Systems Able to Perform ROS?: Yes Comments:: 03/23/17 11:52 GENERAL/CONSTITUTIONAL: No fever or chills. No weakness. HEAD, EYES, EARS, NOSE AND THROAT: (+) Lip bruising. (+) Left eye bruising. No change in vision. No ear pain or discharge. No sore throat. CARDIOVASCULAR: No chest pain or shortness of breath. RESPIRATORY: No cough, wheezing, or hemoptysis. GASTROINTESTINAL: No nausea, vomiting, diarrhea or constipation. GENITOURINARY: No dysuria, frequency, or change in urination. MUSCULOSKELETAL: (+) Right knee pain. No neck or back pain. SKIN: No rash NEUROLOGIC: No headache, vertigo, loss of consciousness, or change in strength/ sensation. ENDOCRINE: No increased thirst. No abnormal weight change. HEMATOLOGIC/LYMPHATIC: No anemia, easy bleeding, or history of blood clots. ALLERGIC/IMMUNOLOGIC: No hives or skin allergy. <Jigar Lima - Last Filed: 03/23/17 15:52> *Physical Exam - Physical Exam Comments: 03/23/17 11:53 GENERAL: (+) Poor dentition. Awake, alert, and fully oriented, in no acute distress HEAD: (+) Upper and lower lip bruising. EYES: (+) Left eye bruising. PERRLA, EOMI, sclera anicteric, conjunctiva clear ENT: (+) Tender across bridge of nose. (+) Tenderness to the left zygomatic arch. No septal hematomas.Auricles normal inspection, hearing grossly normal, nares patent, oropharynx clear without exudates. Moist mucosa NECK: Supple, no lymphadenopathy, JVD, or masses. LUNGS: (+) Diminished breath sounds. Breath sounds equal, clear to auscultation bilaterally. No wheezes, and no crackles HEART: Regular rate and rhythm, normal S1 and S2, no murmurs, rubs or gallops ABDOMEN: (+) Ventral incisional hernia. (+) LLQ bruising. Soft, normoactive bowel sounds. No guarding, no rebound. No masses EXTREMITIES: (+) Bruising to the lateral and medial aspects of the right knee. ( +) Limited ROM of right knee secondary to pain No clubbing or cyanosis. No cords, erythema, or tenderness NEUROLOGICAL: Cranial nerves II through XII grossly intact. Normal speech. SKIN: Warm, Dry, normal turgor, no rashes or lesions noted. <Jigar Lima - Last Filed: 03/23/17 15:52> Heart Score/ECG Review - ECG Intrepretation Comment:: 03/23/17 12:06 sinus at 92, PVC, L axis, LVH, no acute s/t twave findings <Karen Hand - Last Filed: 03/23/17 15:58> ED Treatment Course - LABORATORY CBC & Chemistry Diagram: 03/23/17 12:00 03/23/17 12:00 - Additional Consults Time Called: 15:40 Consult/PCP: Dr. Veliz, admitting <Jigar Lima - Last Filed: 03/23/17 15:52> - LABORATORY CBC & Chemistry Diagram: 03/23/17 12:00 03/23/17 12:00 <Karen Hand - Last Filed: 03/23/17 15:58> Medical Decision Making - Medical Decision Making 03/23/17 12:07 a/p: 86yo female with falls x 4 at home -unsure syncope vs mechanical fall -facial trauma -c spine ttp - collar applied in ED -LLQ bruising -moving all extremities -no focal neuro deficits -hx of CVA in the past -R knee pain -will obtain head, c spine, facial, abd cts -xrays -labs -reassess 03/23/17 13:55 pt very agitated, won't lay flat in CT needs ct to eval for closed head injury on elaquis will medicate to obtain head ct 03/23/17 15:[address] Veliz - accepts pt to service. 03/23/17 15:57 pt willing to stay for further eval <Karen Hand - Last Filed: 03/23/17 15:58> *DC/Admit/Observation/Transfer - Attestations Scribe Attestion: 03/23/17 11:53 Documentation prepared by Jigar Lima, acting as medical unit secretary for Karen Hand DO. <Jigar Lima - Last Filed: 03/23/17 15:52> - Discharge Dispostion Admit: Yes - Attestations Physician Attestion: 03/23/17 15:50 I, Dr. Karen Hand DO, attest that this document has been prepared under my direction and personally reviewed by me in its entirety. I further attest, that it accurately reflects all work, treatment, procedures and medical decision -making performed by me. <Karen Hand - Last Filed: 03/23/17 15:58> Diagnosis at time of Disposition: Fall, Facial contusion, Knee pain - Discharge Dispostion Condition at time of disposition: Fair
[2017-03-23 12:00] VITALS: BMI 30.3
[2017-03-23 12:18] LABS: BASO # 0.1 # (0.1-1); BASO % 1.3 % (0-2.0); EOS # 0.1 # (0-4.5); EOS % 1.1 % (0-4.5); LYMPH # 0.5 (8-40); MCH 29.6 pg (25.7-33.7); MCHC 31.2 g/dl (32.0-36.0); MEAN CELL VOLUME 94.8 fl (80-96); MEAN PLT VOLUME 7.9 fl (7.5-11.1); MONO # 0.8 # (3.8-10.2); NEUT # 8.2 # (42.8-82.8); NEUT % 84.9 % (42.8-82.8); PLATELET COUNT 196 K/MM3 (134-434); WHITE BLOOD COUNT 9.7 K/mm3 (4.0-10.0)
[2017-03-23 12:43] LABS: ALBUMIN 3.2 g/dl (3.4-5.0); ANION GAP 7 (8-16); BILIRUBIN,TOTAL 0.8 mg/dL (0.2-1.0); CALCIUM 8.7 mg/dL (8.5-10.1); CO2 31 mmol/L (21-32); CREATININE 1.6 mg/dL (0.55-1.02); MAGNESIUM 2.3 mg/dL (1.8-2.4); SGOT/AST 7 U/L (15-37); SGPT/ALT 23 U/L (12-78); TOT PROT 6.3 g/dl (6.4-8.2)
[2017-03-23 12:45] LABS: ALK PHOS 120 U/L (45-117); CPK 35 IU/L (26-192); TROPONIN I 0.03 ng/ml (0.00-0.05)
[2017-03-23 12:47] LABS: GLUCOSE,RANDOM 373 mg/dL (74-106)
[2017-03-23] MEDS ORDERED: SODIUM CHLORIDE 0.9% 1000 ML INFUS.BAG IV ONE (13:07)
[2017-03-23 14:24] LABS: INR 1.12 (0.82-1.09); PROTHROMBIN TIME (PATIENT) 12.6 SEC (9.98-11.88)
[2017-03-23 14:27] LABS: ACTIVATED PTT 32.4 SECONDS (26.9-34.4)
[2017-03-23 15:42] LABS: URINE APPEARANCE CLEAR; URINE BILIRUBIN NEGATIVE (NEGATIVE); URINE BLOOD NEGATIVE (NEGATIVE); URINE COLOR YELLOW; URINE GLUCOSE (UA) 3+ (NEGATIVE); URINE KETONE NEGATIVE (NEGATIVE); URINE LEUK ESTERASE NEGATIVE (NEGATIVE); URINE NITRITE NEGATIVE (NEGATIVE); URINE PROTEIN 1+ (NEGATIVE); URINE UROBILINOGEN NEGATIVE mg/dL (0.2-1.0)
[2017-03-23 15:48] LABS: URINE RBC <1 /hpf (0-3); URINE WBC <1 /hpf (3-5)
--- NOTE | 2017-03-23 16:20 | EKG ---
Test Reason : Blood Pressure : / mmHG Vent. Rate : 092 BPM Atrial Rate : 089 BPM P-R Int : 000 ms QRS Dur : 116 ms QT Int : 388 ms P-R-T Axes : 000 -31 138 degrees QTc Int : 479 ms UNDETERMINED RHYTHM LEFT AXIS DEVIATION ATRIAL FIBRILLATION WITH CONTROLLED VENTRICULAR RESPONSE LEFT VENTRICULAR HYPERTROPHY WITH QRS WIDENING T WAVE ABNORMALITY, CONSIDER LATERAL ISCHEMIA PROLONGED QT ABNORMAL ECG WHEN COMPARED WITH ECG OF 21-JAN-2017 15:00, THERE WERE NO SIGNIFICANT CHANGES Confirmed by RANDY WU MD ([id number]) on 03/23/2017 4:20:42 PM Referred By: Confirmed By:RANDY WU MD
[2017-03-23 20:59] LABS: URINE LEUK ESTERASE Negative (NEGATIVE)
[2017-03-24] MEDS ORDERED: ACETAMINOPHEN 325 MG TABLET (FP) PO ONE (04:33)
[2017-03-24] MEDS ORDERED: ALPRAZolam 0.25 MG TABLET PO ONE (09:15)
[2017-03-24] MEDS ORDERED: ALBUTEROL SO4 0.083% IH SOL 2.5 MG/3 ML VIAL.NEB. NEB SCH (13:00)
[2017-03-24] MEDS: RANITIDINE HCL 150 MG TABLET (FP) PO SCH ×2 (14:26→21:43)
[2017-03-24] MEDS: hydrALAZINE HCL 10 MG TABLET PO SCH ×2 (14:27→21:43)
[2017-03-24] MEDS: CARVEDILOL 12.5 MG TABLET (FP) PO SCH ×2 (14:27→21:43)
[2017-03-24] MEDS: DULoxetine HCL 20 MG CAPSULE.DR (FP) PO SCH (14:27)
[2017-03-24] MEDS: TORSEMIDE 20 MG TABLET (FP) PO SCH (14:27)
[2017-03-24] MEDS: ALBUTEROL SO4 2.5/IPRATROPIUM 0.5 INH SOL 3 ML VIAL.NEB. NEB SCH (14:50)
[2017-03-24] MEDS ORDERED: PT OWN MED DRAWER 7, Y5N ONE (15:20)
--- NOTE | 2017-03-24 15:26 | HP ---
DATE OF ADMISSION: 03/24/2017 The patient is an 86-year-old female who was brought in the emergency room following a fall. She has a past medical history of COPD, on home 2 or 3 L oxygen, hypertension, hyperlipidemia, insulin-dependent diabetes mellitus, congestive heart failure. She had a stroke about 8 years ago and had atrial fibrillation, had been placed on Eliquis and had recent hospitalization for pneumonia, has had a few falls and was brought to the emergency room with bilateral contusion of her face. Patient is a poor historian and is unable to provide any history. History has been mostly obtained by reviewing the patient's chart and talking to her healthcare proxy, a friend. PAST MEDICAL HISTORY: As described above. Present medications include Demadex 20 mg p.o. daily, Zantac 150 mg twice a day, sliding scale insulin, Lantus insulin 25 units daily, hydralazine 10 mg twice a day, gabapentin 100 mg 3 times a day, Cymbalta 20 mg daily, Coreg 12.5 mg twice a day, Alphagan eyedrops, Lipitor 40 mg daily, Eliquis 2.5 mg twice a day, and albuterol/Atrovent nebulizer treatment. ALLERGIES: SULFA. Social history, family history, and review of systems are not available. The patient claims that she had 2 daughters but the neighbor says she lives alone and she is healthcare proxy and she has been managing by herself and the healthcare proxy admits that patient has deteriorated to a point where she cannot live independently any longer. PHYSICAL EXAMINATION: General: She is alert, awake, but is lethargic to talk. When aroused, patient is able to have a meaningful conversation. Vital Signs: She has a blood pressure of 152/71, pulse rate of 91, respiratory rate of 18, temperature 97.4. Head and Neck: She is not pale, not icteric. JVD is absent. Thyroid and carotids appear normal. The examination also reveals bilateral raccoon eyes with confusion beneath the lower eyelids. Heart: Regular rhythm. No murmurs. Lungs: Vesicular breathing, clear. Abdomen: Benign. Extremities: Trace edema. She has a white count of 9000 with a hemoglobin of 11.7 and hematocrit 37. PT, PTT are normal. Basic metabolic profile has a BUN of 37, creatinine 1.6, sugar 373, lactic acid of 2.1, otherwise is within normal limits. ASSESSMENT AND PLAN: 1. Contusion of the face and recurrent falls. Patient is at present not an appropriate candidate for Eliquis and will discontinue Eliquis. Given her age and co-morbidities, would also discontinue other long-term curative medications like Lipitor. She is not in a suitable situation to be discharged home, after observation, given recurrent falls and healthcare proxy wanting placement. As such, would hold her in the hospital and get clinical social work therapist to find usp placement. 2. Insulin-dependent diabetes mellitus. 3. Hypertension. Continue present medication. Would discontinue Neurontin, given recurrent falls, which can also be contributing to somnolence and falls. ELIDA OVERTON M.D. [id number]
[2017-03-24] MEDS: BRIMONIDINE TARTRATE 0.15% OPHTHALMIC 5 ML BOTTLE OU SCH (15:31)
[2017-03-24] MEDS ORDERED: INSULIN (NOVOLOG) ASPART 100 UNITS/ML 10ML VIAL SQ ONE ×2 (21:07→21:15)
--- NOTE | 2017-03-24 21:10 | HOSP ---
Subjective - Review of Symptoms Events since last encounter: Hospitalist Encounter Notified by RN, that a patient of Dr. Veliz, has a BGM of 459. Patient is on Levimir BID, no sliding scale. A/P The patient is a 86 year old female with a significant PMHx of COPD (on 3L home O2), HTN, hyperlipidemia, diabetes, CHF, past stroke (8 years ago), AFIB (on Eliquis), GERD and recent pneumonia. Admitted for Generalized Weakness and Frequent Falls Novolog 8 units SQ x1 Repeat FS in 1 hr Will continue to monitor as indicated. Physical Examination Vital Signs: Vital Signs Temperature 97.6 F 03/24/17 18:41 Pulse Rate 86 03/24/17 14:00 Respiratory Rate 18 03/24/17 18:41 Blood Pressure 114/66 03/24/17 18:41 O2 Sat by Pulse Oximetry (%) 93 L 03/24/17 09:00 Labs: CBC, BMP 03/23/17 12:00 03/23/17 12:00 Laboratory Results - last 24 hr 03/24/17 14:20 POC Glucometer 394 Current Medications Generic Name Dose Route Start Last Admin Trade Name Freq PRN Reason Stop Dose Admin Albuterol/Ipratropium 1 amp 03/24/17 14:15 03/24/17 14:50 Duoneb - NEB 1 amp BID [facility]IA Administration Brimonidine Tartrate 1 drop 03/24/17 15:00 03/24/17 15:31 Alphagan 0.15% - OU 1 drop DAILY VALERIA Administration Carvedilol 12.5 mg 03/24/17 14:15 03/24/17 14:27 Coreg - PO 12.5 mg BID VALERIA Administration Duloxetine HCl 20 mg 03/24/17 14:15 03/24/17 14:27 Cymbalta - PO 20 mg DAILY VAELRIA Administration Hydralazine HCl 10 mg 03/24/17 14:15 03/24/17 14:27 Apresoline - PO 10 mg BID VALERIA Administration Insulin Aspart 8 units 03/24/17 21:15 Novolog Vial SQ 03/24/17 21:16 ONCE ONE Insulin Detemir 25 units 03/24/17 22:00 Levemir Vial SQ HS VALERIA Ranitidine HCl 150 mg 03/24/17 14:15 03/24/17 14:26 Zantac - PO 150 mg BID VALERIA Administration Torsemide 20 mg 03/24/17 14:15 03/24/17 14:27 Demadex - PO 20 mg DAILY VALERIA Administration Last Vital Signs Temp Pulse Resp BP Pulse Ox 97.6 F 86 18 114/66 93 L 03/24/17 18:41 03/24/17 14:00 03/24/17 18:41 03/24/17 18:41 03/24/17 09:00
[2017-03-24] MEDS ORDERED: INSULIN (NOVOLOG) ASPART 100 UNITS/ML 10ML VIAL ONE (21:40)
[2017-03-24] MEDS: INSULIN DETEMIR 100 UNITS/ML MDV SQ SCH (21:46)
[2017-03-25] MEDS: ALBUTEROL SO4 2.5/IPRATROPIUM 0.5 INH SOL 3 ML VIAL.NEB. NEB SCH (00:25)
[2017-03-25] MEDS: DULoxetine HCL 20 MG CAPSULE.DR (FP) PO SCH (10:03)
[2017-03-25] MEDS: TORSEMIDE 20 MG TABLET (FP) PO SCH (10:03)
[2017-03-25] MEDS: CARVEDILOL 12.5 MG TABLET (FP) PO SCH ×2 (10:03→21:15)
[2017-03-25] MEDS: hydrALAZINE HCL 10 MG TABLET PO SCH ×2 (10:04→21:15)
[2017-03-25] MEDS: BRIMONIDINE TARTRATE 0.15% OPHTHALMIC 5 ML BOTTLE OU SCH (10:04)
[2017-03-25] MEDS: RANITIDINE HCL 150 MG TABLET (FP) PO SCH ×2 (10:04→21:15)
[2017-03-25] MEDS ORDERED: ACETAMINOPHEN 325 MG TABLET (FP) PO ONE (16:45)
--- NOTE | 2017-03-25 17:28 | PN ---
Progress Note (short form) - Note Progress Note: No new events Is feeling better and does not want to go to a [place] [facility] Heart irregular Lungs clear Abd osft Ext no edema Laboratory Results - last 24 hr 03/25/17 06:00 POC Glucometer 132 Vital Signs Period Temp Pulse Resp BP Sys/Urbina Pulse Ox Last 24 Hr 97.4 F-98.3 F 71-86 18-18 96-126/50-70 93-95 Current Medications Albuterol/Ipratropium (Duoneb -) 1 amp NEB BID [facility] Last Admin: 03/25/17 00:25 Dose: Not Given Brimonidine Tartrate (Alphagan 0.15% -) 1 drop OU DAILY [facility] Last Admin: 03/25/17 10:04 Dose: 1 drop Carvedilol (Coreg -) 12.5 mg PO BID [facility] Last Admin: 03/25/17 10:03 Dose: 12.5 mg Duloxetine HCl (Cymbalta -) 20 mg PO DAILY [facility] Last Admin: 03/25/17 10:03 Dose: 20 mg Hydralazine HCl (Apresoline -) 10 mg PO BID [facility] Last Admin: 03/25/17 10:04 Dose: 10 mg Insulin Detemir (Levemir Vial) 25 units SQ HS [facility] Last Admin: 03/24/17 21:46 Dose: 25 units Ranitidine HCl (Zantac -) 150 mg PO BID [facility] Last Admin: 03/25/17 10:04 Dose: 150 mg Torsemide (Demadex -) 20 mg PO DAILY [facility] Last Admin: 03/25/17 10:03 Dose: 20 mg A&P 1.Contusion of face No need for any intervention at present 2.Multiple falls Need a short term rehab or perhaps even a usp placement as she is too olf and feeble to manage her own ADLs 3.A. Fib Given mutiple falls the Eliquis and other A/c have to be stopped. Risks explanied to her and her HCP 4.HTN controlled 5.Age associated debility ? Placement
[2017-03-25] MEDS: INSULIN DETEMIR 100 UNITS/ML MDV SQ SCH (21:16)
[2017-03-25] MEDS: ACETAMINOPHEN 500 MG TABLET (FP) PO PRN (22:05)
[2017-03-26] MEDS: ACETAMINOPHEN 500 MG TABLET (FP) PO PRN ×2 (04:37→17:55)
[2017-03-26] MEDS: CARVEDILOL 12.5 MG TABLET (FP) PO SCH ×2 (09:09→21:49)
[2017-03-26] MEDS: DULoxetine HCL 20 MG CAPSULE.DR (FP) PO SCH (09:09)
[2017-03-26] MEDS: TORSEMIDE 20 MG TABLET (FP) PO SCH (09:09)
[2017-03-26] MEDS: RANITIDINE HCL 150 MG TABLET (FP) PO SCH ×2 (09:09→21:49)
[2017-03-26] MEDS: hydrALAZINE HCL 10 MG TABLET PO SCH ×2 (09:09→21:48)
[2017-03-26] MEDS ORDERED: PT OWN MED DRAWER 7, Y5N ONE (09:18)
[2017-03-26] MEDS: BRIMONIDINE TARTRATE 0.15% OPHTHALMIC 5 ML BOTTLE OU SCH (09:20)
[2017-03-26] MEDS: ALBUTEROL SO4 2.5/IPRATROPIUM 0.5 INH SOL 3 ML VIAL.NEB. NEB SCH ×2 (12:00→22:15)
--- NOTE | 2017-03-26 12:47 | PN ---
Progress Note, Physician Chief Complaint: Ms Boucher says her face is hurting but otherwise is fine. No cp, sob, n/v. Does not want to go to SNF. - Current Medication List Current Medications: Active Medications Acetaminophen (Tylenol -) 1,000 mg PO Q6H PRN PRN Reason: FEVER OR PAIN Last Admin: 03/26/17 04:37 Dose: 1,000 mg Albuterol/Ipratropium (Duoneb -) 1 amp NEB BID [facility] Last Admin: 03/25/17 00:25 Dose: Not Given Brimonidine Tartrate (Alphagan 0.15% -) 1 drop OU DAILY [facility] Last Admin: 03/26/17 09:20 Dose: 1 drop Carvedilol (Coreg -) 12.5 mg PO BID [facility] Last Admin: 03/26/17 09:09 Dose: 12.5 mg Duloxetine HCl (Cymbalta -) 20 mg PO DAILY [facility] Last Admin: 03/26/17 09:09 Dose: 20 mg Hydralazine HCl (Apresoline -) 10 mg PO BID [facility] Last Admin: 03/26/17 09:09 Dose: 10 mg Insulin Detemir (Levemir Vial) 25 units SQ HS [facility] Last Admin: 03/25/17 21:16 Dose: 25 units Ranitidine HCl (Zantac -) 150 mg PO BID [facility] Last Admin: 03/26/17 09:09 Dose: 150 mg Torsemide (Demadex -) 20 mg PO DAILY [facility] Last Admin: 03/26/17 09:09 Dose: 20 mg - Objective Vital Signs: Vital Signs Temperature 36.6 C 03/26/17 09:08 Pulse Rate 88 03/26/17 09:08 Respiratory Rate 18 03/26/17 09:08 Blood Pressure 144/70 03/26/17 09:08 O2 Sat by Pulse Oximetry (%) 95 03/26/17 09:00 Constitutional: Yes: Well Nourished, No Distress, Calm Eyes: Yes: Other (periorbital ecchymosis) Cardiovascular: Yes: Regular Rate and Rhythm. No: Gallop, Murmur, Rub Respiratory: Yes: Regular, On Nasal O2, Wheezes. No: CTA Bilaterally, Rales, Rhonchi Gastrointestinal: Yes: Normal Bowel Sounds, Soft. No: Distention, Tenderness Extremities: Yes: WNL Edema: No Labs: CBC, BMP 03/23/17 12:00 03/23/17 12:00 INR, PTT INR 1.12 (0.82-1.09) 03/23/17 12:00 Problem List - Problems (1) Facial contusion Assessment/Plan: -s/p fall causing facial contusion -patient now without complaints -broached possibility of SNF, currently wants to go home -follow up PT recommendations -dispo for tomorrow, pending PT Code(s): S00.83XA - CONTUSION OF OTHER PART OF HEAD, INITIAL ENCOUNTER Qualifiers: Encounter type: initial encounter Qualified Code(s): S00.83XA - Contusion of other part of head, initial encounter (2) Fall Assessment/Plan: -mechanical -as above -recommended SNF but patient declines Code(s): W19.XXXA - UNSPECIFIED FALL, INITIAL ENCOUNTER Qualifiers: Encounter type: initial encounter Qualified Code(s): W19.XXXA - Unspecified fall, initial encounter (3) Atrial fibrillation Assessment/Plan: -rate controlled -anticoagulation stopped secondary to fall risk Code(s): I48.91 - UNSPECIFIED ATRIAL FIBRILLATION Qualifiers: Atrial fibrillation type: chronic Qualified Code(s): I48.2 - Chronic atrial fibrillation (4) COPD (chronic obstructive pulmonary disease) Assessment/Plan: -not in exacerbation -continue oxygen -continue home regimen Code(s): J44.9 - CHRONIC OBSTRUCTIVE PULMONARY DISEASE, UNSPECIFIED (5) Chronic kidney disease (CKD) Assessment/Plan: -stable Code(s): N18.9 - CHRONIC KIDNEY DISEASE, UNSPECIFIED Qualifiers: Chronic kidney disease stage: stage 4 (severe) Qualified Code(s): N18.4 - Chronic kidney disease, stage 4 (severe) (6) Congestive heart failure Assessment/Plan: -continue torsemide Code(s): I50.9 - HEART FAILURE, UNSPECIFIED Qualifiers: Congestive heart failure type: diastolic Congestive heart failure chronicity: chronic Qualified Code(s): I50.32 - Chronic diastolic (congestive ) heart failure (7) Hypertension Assessment/Plan: -controlled -continue current regimen Code(s): I10 - ESSENTIAL (PRIMARY) HYPERTENSION (8) Chronic respiratory failure Assessment/Plan: -continue oxygen support Code(s): J96.10 - CHRONIC RESPIRATORY FAILURE, UNSP W HYPOXIA OR HYPERCAPNIA (9) IDDM (insulin dependent diabetes mellitus) Assessment/Plan: -continue levemir Code(s): E11.9 - TYPE 2 DIABETES MELLITUS WITHOUT COMPLICATIONS; 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
[2017-03-26] MEDS ORDERED: ALBUTEROL SO4 2.5/IPRATROPIUM 0.5 INH SOL 3 ML VIAL.NEB. NEB ONE (17:53)
[2017-03-26] MEDS: INSULIN DETEMIR 100 UNITS/ML MDV SQ SCH (21:49)
[2017-03-27] MEDS: ACETAMINOPHEN 500 MG TABLET (FP) PO PRN ×2 (01:16→06:50)
[2017-03-27 09:02] LABS: BASO % 1.5 % (0-2.0); EOS % 3.4 % (0-4.5); MCH 29.5 pg (25.7-33.7); MCHC 31.4 g/dl (32.0-36.0); MEAN CELL VOLUME 93.7 fl (80-96); MEAN PLT VOLUME 8.1 fl (7.5-11.1); NEUT % 76.9 % (42.8-82.8); PLATELET COUNT 173 K/MM3 (134-434); RDW 16.9 % (11.6-15.6); WHITE BLOOD COUNT 6.7 K/mm3 (4.0-10.0)
[2017-03-27 09:09] LABS: ANION GAP 9 (8-16); CALCIUM 8.7 mg/dL (8.5-10.1); CO2 34 mmol/L (21-32); GLUCOSE,RANDOM 76 mg/dL (74-106); MAGNESIUM 2.4 mg/dL (1.8-2.4)
[2017-03-27 09:11] LABS: CREATININE 1.6 mg/dL (0.55-1.02); PHOSPHOROUS 4.5 mg/dL (2.5-4.9)
[2017-03-27] MEDS: RANITIDINE HCL 150 MG TABLET (FP) PO SCH (10:34)
[2017-03-27] MEDS: DULoxetine HCL 20 MG CAPSULE.DR (FP) PO SCH (10:34)
[2017-03-27] MEDS: TORSEMIDE 20 MG TABLET (FP) PO SCH (10:34)
[2017-03-27] MEDS: CARVEDILOL 12.5 MG TABLET (FP) PO SCH (10:34)
[2017-03-27] MEDS: hydrALAZINE HCL 10 MG TABLET PO SCH (10:34)
[2017-03-27] MEDS: BRIMONIDINE TARTRATE 0.15% OPHTHALMIC 5 ML BOTTLE OU SCH (10:40)
--- NOTE | 2017-03-27 11:22 | DS ---
Physical Examination Vital Signs: Vital Signs Temperature 36.7 C 03/27/17 06:00 Pulse Rate 82 03/27/17 06:00 Respiratory Rate 20 03/27/17 06:00 Blood Pressure 131/75 03/27/17 06:00 O2 Sat by Pulse Oximetry (%) 95 03/26/17 21:00 Constitutional: Yes: Well Nourished, No Distress, Calm Cardiovascular: Yes: Regular Rate and Rhythm. No: Gallop, Murmur, Rub Respiratory: Yes: Regular, CTA Bilaterally. No: Rales, Rhonchi, Wheezes Gastrointestinal: Yes: Normal Bowel Sounds, Soft. No: Distention, Tenderness Extremities: Yes: WNL Edema: No Labs: CBC, BMP 03/27/17 06:00 03/27/17 06:00 Discharge Summary Reason For Visit: KNEE PAIN FALL CONTUSION TO FACE Current Active Problems Chronic respiratory failure (Acute) Facial contusion (Acute) Fall (Acute) Knee pain (Acute) Hospital Course: (1) Facial contusion Code(s): S00.83XA - CONTUSION OF OTHER PART OF HEAD, INITIAL ENCOUNTER Qualifiers: Encounter type: initial encounter Qualified Code(s): S00.83XA - Contusion of other part of head, initial encounter (2) Fall Code(s): W19.XXXA - UNSPECIFIED FALL, INITIAL ENCOUNTER Qualifiers: Encounter type: initial encounter Qualified Code(s): W19.XXXA - Unspecified fall, initial encounter (3) Atrial fibrillation Code(s): I48.91 - UNSPECIFIED ATRIAL FIBRILLATION Qualifiers: Atrial fibrillation type: chronic Qualified Code(s): I48.2 - Chronic atrial fibrillation (4) COPD (chronic obstructive pulmonary disease) Code(s): J44.9 - CHRONIC OBSTRUCTIVE PULMONARY DISEASE, UNSPECIFIED (5) Chronic kidney disease (CKD) Code(s): N18.9 - CHRONIC KIDNEY DISEASE, UNSPECIFIED Qualifiers: Chronic kidney disease stage: stage 4 (severe) Qualified Code(s): N18.4 - Chronic kidney disease, stage 4 (severe) (6) Congestive heart failure Code(s): I50.9 - HEART FAILURE, UNSPECIFIED Qualifiers: Congestive heart failure type: diastolic Congestive heart failure chronicity: chronic Qualified Code(s): I50.32 - Chronic diastolic (congestive ) heart failure (7) Hypertension Code(s): I10 - ESSENTIAL (PRIMARY) HYPERTENSION (8) Chronic respiratory failure Code(s): J96.10 - CHRONIC RESPIRATORY FAILURE, UNSP W HYPOXIA OR HYPERCAPNIA (9) IDDM (insulin dependent diabetes mellitus) Code(s): E11.9 - TYPE 2 DIABETES MELLITUS WITHOUT COMPLICATIONS; Z79.4 - 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 She was admitted to the hospital and followed by PT. Her eliquis was stopped because she says she has multiple falls at home. Her gabapentin was also stopped for this reason. Discussion was had about patient possibly going to SNF for rehabilitation, she adamantly refused to go to a SNF and insisted on going home. I expressed my concern about continued falls concerning this and how she may benefit from SNF placement but patient remained insistent about discharge home. Currently she will be discharged home with home VNS. 32 minutes spent in preparation of this discharge Condition: Stable - Instructions Diet, Activity, Other Instructions: resume previous diet and activity Referrals: Roni Arteaga MD [Staff Physician] - Disposition: VNS/HOME HEALTH CARE - Home Medications Comprehensive Discharge Medication List: Ambulatory Orders RX: Albuterol 2.5/Ipratropium 0.5 [Duoneb -] 1 neb IH BID 08/08/15 RX: Atorvastatin Ca [Lipitor] 40 mg PO HS 08/08/15 RX: Brimonidine Tartrate [Alphagan 0.15% -] 1 drop OU DAILY 08/08/15 RX: Torsemide [Demadex -] 20 mg PO DAILY #30 tablet 03/03/16 RX: Insulin Glargine,Hum.rec.anlog [Lantus (10mL VIAL) -] 25 units SQ HS RX: Duloxetine HCl [Cymbalta -] 20 mg PO DAILY #30 cap.sr 07/19/16 RX: Ranitidine [Zantac -] 150 mg PO BID tablet 07/19/16 RX: Albuterol 0.083% Nebulizer Anny [Ventolin 0.083% Nebulizer Soln -] 1 amp NEB BID amp 02/04/17 RX: Carvedilol [Coreg -] 12.5 mg PO BID tablet 02/04/17 RX: Hydralazine HCl [Apresoline -] 10 mg PO BID tablet 02/04/17 RX: Insulin Sliding Scale [Novolog Vial Sliding Scale -] 1 vial SQ ACHS units 02/04/17
[2017-03-27 12:58] VITALS: BP 135/94; PULSE 85; TEMP 98.2
== END 2017-03-27 12:28 | disposition home health service (06) | DRG 605 ==
LOC: JER 11:13 → JERBED 15:58 → J4S 18:33 → OBSVTOIN 03-24 12:54
PROVIDERS: ADMIT Internal Medicine Geriatric Medicine; ATTEND Internal Medicine Geriatric Medicine
DX: S00.83XA Contusion of other part of head, initial encounter (principal); I13.0 Hypertensive heart and chronic kidney disease with heart failure and stage 1 through stage 4 chronic kidney disease, or unspecified chronic kidney disease; N18.4 Chronic kidney disease, stage 4 (severe); I50.32 Chronic diastolic (congestive) heart failure; J96.10 Chronic respiratory failure, unspecified whether with hypoxia or hypercapnia; J44.9 Chronic obstructive pulmonary disease, unspecified; E11.22 Type 2 diabetes mellitus with diabetic chronic kidney disease; E78.5 Hyperlipidemia, unspecified; K21.9 Gastro-esophageal reflux disease without esophagitis; I25.2 Old myocardial infarction; W18.39XA Other fall on same level, initial encounter; Y93.89 Activity, other specified; Y92.098 Other place in other non-institutional residence as the place of occurrence of the external cause; Z99.81 Dependence on supplemental oxygen; Z87.891 Personal history of nicotine dependence; Z79.4 Long term (current) use of insulin
CPT/HCPCS: 36415; 70450-TC; 70486-TC; 71010-TC; 72125-TC; 73552-TC-RT; 73562-TC-RT; 74176-TC; 80048; 80053; 81003; 81015; 82550; 83605; 83690; 83735; 84100; 84484; 85025; 85610; 85730; 86850; 86900; 86901; 87086; 93005; 93010; 94640; 97116-GP; 97161-GP; 99284-25; G0378